=== PATIENT | female | born 1975 | race Caucasian/White ===

== ENCOUNTER 2025-04-09 17:50 | Emergency (ER) | payer OTHER, SELFPAY ==
--- OUTSIDE RECORDS SUMMARY | 2025-03-01 13:50 | XMS_ITS | Encounter Summary ---
Author Organization [place] Address [address] [facility] [place] [address] Care Team Providers Care Ug Designer Name Role Phone Alexandrea Blackwell MD Primary Care Provider Deidre Mcpherson APRN CORE JAVA ENGINEER Unavaila ble Rosina Murphy MD Unavailable [phone] Rosina Murphy MD Unavailable [phone] Nica Hua Unavailable Lis Sharp MD Unavailable Lis Sharp MD Unavailable Alisa Sheffield APRN CORE JAVA ENGINEER Unavailable [phone] Antolin Chavez MD Unavailable [phone] Reason for Visit * Reason Comments Procedure Here for injections, confirmed with patient Encounter Details Date Type Department Care Team (Late st Contact Info) Description 03/01/2025 1:50 PM CDT Office Visit [facility] [place] [address] [facility] 3rd [place] [address] Antolin Chavez MD [address] [facility] [address] [place] [address] Cervico-occipital neuralgia (Primary Dx); Muscle spasm Social History Tobacco Use Types Packs/Day Years Used Date Smoking Tobacco: Never Smokeless Tobacco: Never Alcohol Use Standard Drinks/Week Comments Yes 0 (1 standard drink = 0.6 oz pur e alcohol) 1/week PHQ-2 Answer Date Recorded PHQ-2 Score 0 08/03/2024 Adolescent Education Answer Date Record ed Getting School Help Needed Not on file 03/21 Interpersonal Safety Answer Date Record ed Do you feel physically and e motionally safe where you currently live? Yes 03/07/2024 Within the past 12 months, h ave you been hit, slapped, kicked or otherwise physically hurt by someone? No 03/07/2024 Within the past 12 months, h ave you been humiliated or emotionally abused in other ways by your partner or ex-partner? No 03/07/2024 Comments No Sex and Gender Information Value Date Recorded Sex Assigned at Female 03/04/2022 6:27 PM CDT Legal Sex Female 3:15 AM RN AMBULATORY Gender Identity Female 03/04/2022 6:27 PM CDT Sexual Orientation Bisexual 03/04/2022 6: 27 PM CDT documented as of this encounter Patient Instructions * Patient Instructions* Antolin Chavez MD - 03/01/2025 1:50 PM CDT It was a pleasure seeing you today in [facility]. We discussed the following: #. Flexeril (cyclobenzaprine) is generally marketed as a muscle relaxant, the similarities in chemical structure to the tricyclic antidepressants make it a very useful medication to treat pain and itcan also be helpful for treating sleep disturbance. Begin Flexeril at a dose of 5 mg 2-3 hours before bedtime. Taking the medication in this fashion can help decrease morning grogginess. Increase thedose by 5 mg every week as tolerated until a total dose of 10mg is achieved. #. INJECTION AFTERCARE Procedure performed: Occipital nerve blocks Medications used today: 1mL Kenalog (40mg/mL), 1% Lidocaine, Bupivacaine After any kind of injection, it is not uncommon to experience: - Soreness, swelling or bruising around the injection site. - Mild numbness, tingling or weakness around the injection site caused by the numbing medicine usedbefore or with the injection. It is also possible to experience the following effects associated with the specific agent after injection: - Allergic reaction. - Increased blood sugar levels for 10-14 days following cortisone injection. If you have diabetes and notice that your blood sugar levels have increased, notify your primary care physician. - Increased blood pressure levels. - Mood swings. - Increased fluid accumulation in the injected joint. These effects all should resolve within a day or two of your procedure. Please note that it may take up to 14 days for the steroid (cortisone) medication to start working. HOME CARE INSTRUCTIONS - Limit yourself to light activity activity on the day of your procedure. Avoid lifting heavy objects, bending, stooping or twisting. - You may shower, but please avoid swimming, hot tubs or tub baths for 24 hours following the procedure. - Take pkxv-nqu-rvziwdw pain medication (NSAIDS or Tylenol) for pain control after your procedure as needed. - You may use ice packs for 10-15 minutes 3-4 times per day at the injection site to reduce pain and swelling after your procedure. + Put ice in a plastic bag + Place a towel between your skin and the ice bag + Leave the ice on for no longer than 20 minutes each time to avoid injuring your skin or nerves + This can be repeated 3-4 times per day for a few days after the injection SEEK IMMEDIATE MEDICAL CARE IF: - Pain and swelling get worse rather than better or extend beyond the injection site - Numbness does not go away after a few hours - Blood or fluid continues to leak from the injection site - You experience chest pain - You have swelling of your face or tongue - You have trouble breathing or become dizzy - You develop fever, chills or severe tenderness at the injection site that lasts longer than 1 day MAKE SURE YOU: - Understand these instructions - Watch your condition - Get help right away if you are not doing well or if you get worse Follow-up: x3 months for repeat Botox injection. documented in this encounter Progress Notes * Antolin Chavez MD - 03/01/2025 1:50 PM CDT PM&R PROCEDURE NOTE: Bilateral Greater/Lesser Occipital Nerve Block PATIENT: Nicole Emanuel : 1975 Today's Date: 03/01/2025 ATTENDING PHYSICIAN: Antolin Chavez MD RESIDENT/FELLOW PHYSICIAN: None PREOP DIAGNOSIS: Cervico-occipital neuralgia (primary encounter diagnosis) POSTOP DIAGNOSIS: Same PROCEDURE PERFORMED: Bilateral Greater/Lesser Occipital Nerve Block INDICATIONS FOR PROCEDURE: Nicole Emanuel is a 49 year old female with a clinical picture consistent with chronic head/neck pain consistent with occipital neuralgia/cervico- occipital pain. PROCEDURE: Nicole was greeted in the clinic. The risk, benefits and alternatives to the procedure were again reviewed with the patient and written informed consent was placed in the chart. After having explained the potential risks (including but not limited to infection, bleeding, skin color change, post-injection soreness, injury to nerve) and benefits of the occipital nerve block injection, the patient gave consent to proceed. Prior to the procedure a time out was completed, verifying correct patient, procedure, site, positioning, and implants and/or special equipment. Needle(s) used: 25 gauge , 1 1/2 inch The area was prepped in aseptic fashion with Chlorhexidine scrub. The needle was directed into the region of the greater and lesser occipital nerves. The injection was completed with 5.0mL consistingof 0.5mL Kenalog (40mg/mL), 2mL 2% Lidocaine and 2.5mL 0.25% Bupivacaine which was delivered to theoccipital nerve regions (2.5mL per EVANGELIST and JOHN) using sterile technique after no blood was aspirated on pull back, per the right and left side(s). The remainder of the single use vials were discarded. The patient experienced numbness to the vertex of the head following the procedure as anticipated. Nicole was monitored for a brief period of time. She tolerated the procedure well and was discharged home in stable condition with post procedural instructions. Follow up: x3 months. Complications: None Comments: -Overall, notes increased pain and migraine symptoms following Botox injections last month with increased medication usage. -Flexeril (cyclobenzaprine) 5-10mg is generally marketed as a muscle relaxant, the similarities in chemical structure to the tricyclic antidepressants make it a very useful medication to treat pain and it can also be helpful for treating sleep disturbance. documented in this encounter Nursing Notes * Carol Mitchell - 03/01/2025 1:50 PM CDT Chief Complaint Patient presents with Procedure Here for injections, confirmed with patient Carol Escobar documented in this encounter Plan of Treatment Upcoming Encounters Date Type Department Care Team (Late st Contact Info) Description 04/17/2025 1:10 PM CDT Office Visit [facility] [address] [phone] Antolin Chavez MD [address] [place] [address] [id number] 05/29/2025 1:30 PM RN AMBULATORY Office Visit [facility] [address] [phone] Antolin Chavez MD [address] [place] [address] [id number] 07/10/2025 3:30 PM RN AMBULATORY Office Visit [facility] [address] [phone] Antolin Chavez MD [address] [place] [address] documented as of this encounter Procedures Procedure Name Priority Date/Time Associated Diagnosis Comments MO INJECTION ANES AGENT AND/OR STERIOD, OTHER PERIPH NERVE/BRANCH Routine 03/01/2025 2:27 PM CDT Cervico-occipital neuralgia Muscle spasm MO INJECTION ANES AGENT AND/OR STERIOD, GREATER OCCIPITAL NERVE Routine 03/01/2025 2:27 PM CDT Cervico-occipital neuralgia Muscle spasm documented in this encounter Visit Diagnoses Diagnosis Cervico-occipital neuralgia- Primary Other syndromes affecting cervical region Muscle spasm Spasm of muscle documented in this encounter Administered Medications Inactive Administered Medications - up to 3 most recent administrations Medication Order MAR Action Action Date Dose Rate Site bupivacaine (MARCAINE) 0.25% preservative free injection 12.5 mg (5 mL), Other, ONCE, On Thu03/01/25 at 1430, For 1 doseIndications:Cervico-occip ital neuralgia,Muscle spasm $Given by Other 03/01/2025 3:55 PM CDT 12.5 mg lidocaine (PF) (XYLOCAINE) 1 % injection 4 mL 4 mL, Intradermal, ONCE, On Thu03/01/25 at 1430, For 1 doseIndications:Cervico-occip ital neuralgia,Muscle spasm $Given by Other 03/01/2025 3:55 PM CDT 4 mLs triamcinolone (KENALOG-40) injection 40 mg 40 mg, Other, ONCE, On Thu03/01/25 at 1430, For 1 doseIndications:Cervico-occip ital neuralgia,Muscle spasm $Given by Other 03/01/2025 3:55 PM CDT 40 mg documented in this encounter Care Teams Ug Designer Relationship Specialty Start Date End Date Alexandrea Blackwell MD PCP - General 05/26/12 Deidre Mcpherson, AFSHIN CORE JAVA ENGINEER [address] [place] [address] [id number] [place], [place] [id number] Nurse Practitioner Neurology 07/27/20 Rosina Murphy MD [address] [place] [address] 074705 Physical Medicine and Rehabilitation 11/19/21 Rosina Murphy MD [address] [place] [address] [phone] Physical Medicine and Rehabilitation 11/19/21 Nica Hua AuD [address] [place], [place] 386[address] Beef Pluck Trimmer Audiology 05/21/22 Lis Sharp MD [address] [place] [address] 396 [place], [place] [phone] Otolaryngology 05/21/22 Lis Sharp MD [address] [place] [address] [phone] Assigned Surgical Provider 11/01/22 Alisa Sheffield APRN CNP [address] [place], [place] 151335 Nurse Practitioner Neurology 02/04/24 Antolin Chavez MD [address] [place] [address] [address] [place], [place] 615705 Assigned Neuroscience Provider 12/19/24 documented as of this encounter
--- OUTSIDE RECORDS SUMMARY | 2025-04-09 17:52 | XMS_ITS | Encounter Summary ---
Author Organization [place] Address [address], [place] [address] Care Team Providers Care Gas Main And Line Fitter Name Role Phone Alexandrea Blackwell MD Primary Care Provider [phone] Encounter Details Date Type Department Care Team (Late st Contact Info) Description 08/10/2013 Consent for Procedure/Treatme nt 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 Not on file Not on onofre e documented as of this encounter Progress Notes * [facility], PROVIDER - 08/10/2013 12:00 AM CST ITALITY MANAGER documented in this encounter Plan of Treatment Not on file documented as of this encounter Visit Diagnoses Not on filedocumented in this encounter Additional Health Concerns Infection Onset Date Last Indicated Resolved Time R/O COVID19 06/03/2021 06/03/2021 06/04/2021 2:15 PM HOSPITALITY MANAGER documented as of this encounter Care Teams Gas Main And Line Fitter Relationship Specialty [place] [address] [place] [address] PCP - General Family Practice 07/01/12 documented as of this encounter
--- OUTSIDE RECORDS SUMMARY | 2025-04-09 17:52 | XMS_ITS | Encounter Summary ---
Author Organization [place] Address [address] [facility] [place] [address] Care Team Providers Care Automobile Upholsterer Name Role Phone Alexandrea Blackwell MD Primary Care Provider [phone] Deidre Mcpherson APRN STRATEGY INTERN Unavaila ble Deidre Mcpherson COMMUNITY DIRECTOR STRATEGY INTERN Unavaila ble Rosina Murphy MD Unavailable [phone] Rosina Murphy MD Unavailable [phone] Nica Hua AuD Unavailable [phone] Lis Sharp MD Unavailable [phone] Lis Sharp MD Unavailable [phone] Alisa Sheffield APRN STRATEGY INTERN Unavailable [phone] Antolin Chavez MD Unavailable [phone] Encounter Details Date Type Department Care Team (Late st Contact Info) Description 03/03/2024 MyC Medical Advice [address] 5th [place] [address] Araceli Rosales RN Social History Tobacco Use Types Packs/Day Years Used Date Smoking Tobacco: Never Smokeless Tobacco: Never Alcohol Use Standard Drinks/Week Comments Yes 0 (1 standard drink = 0.6 oz pur e alcohol) 1/week PHQ-2 Answer Date Recorded PHQ-2 Score 0 02/17/2024 Adolescent Education Answer Date Record ed Getting [...] PM CDT Legal Sex Female 3:15 AM ADMITTING OFFICE ESCORT Gender Identity Female 03/04/2022 6:27 PM CDT Sexual Orientation Bisexual 03/04/2022 6: 27 PM CDT documented as of this encounter Plan of Treatment Upcoming Encounters Date Type Department Care Team (Late st Contact Info) Description 04/17/2025 1:10 PM CDT Office Visit [facility] Physical Medicine and Rehabilitation [address] [phone] Antolin Chavez MD [address] [place] [address] [phone] 05/29/2025 1:30 PM ADMITTING OFFICE ESCORT Office Visit [facility] Clinic [address] [phone] Antolin Chavez MD [address] [place] [address] [phone] 07/10/2025 3:30 PM ADMITTING OFFICE ESCORT Office Visit [facility] Rehabilitation Clinic [address] [phone] Antolin Chavez MD [address] [place] [address] [phone] documented as of this encounter Visit Diagnoses Not on filedocumented in this encounter Care Teams Automobile Upholsterer Relationship Specialty Start Date End Date Alexandrea Blackwell MD PCP - General 05/26/12 Deidre Mcpherson APRN STRATEGY INTERN [address] [place] [address] Nurse Practitioner Neurology 07/27/20 Deidre Mcpherson APRN STRATEGY INTERN [address] [place] [address] Assigned Neuroscience Provider 12/09/20 12/18/24 Rosina Murphy MD [address] [place] [address] Physical Medicine and Rehabilitation 11/19/21 Rosina Murphy MD [address] [place] [address] [phone] Physical Medicine and Rehabilitation 11/19/21 Nica Hua AuD [address] [place] [address] School Examiner Audiology 05/21/22 Lis Sharp MD [address] [facility] [address] [place] [address] Otolaryngology 05/21/22 Lis Sharp MD [address] [facility] [address] [place] [address] Assigned Surgical Provider 11/01/22 Alisa Sheffield APRN CNP [address] [place] [address] 638165 Nurse Practitioner Neurology 02/04/24 Antolin Chavez MD [address] [place] [address] 297 [place], [place] 8[address]35 Assigned Neuroscience Provider 12/19/24 documented as of this encounter
--- OUTSIDE RECORDS SUMMARY | 2025-04-09 17:52 | XMS_ITS | Encounter Summary ---
Author Organization [place] Address [address] [facility] [place] [address] Care Team Providers Care Hot Worker Name Role Phone Alexandrea Blackwell MD Primary Care Provider Rupa Roa MD Unavailable [phone] Lis Sharp MD Unavailable Deidre Mcpherson APRN SMOKE EATER Unavaila ble Tico Mensah MD Unavailable Deidre Mcpherson APRN SMOKE EATER Unavaila ble Mars Canela MD Unavailable [phone] Rosina Murphy MD Unavailable [phone] Rosina Murphy MD Unavailable [phone] Nica Hua Unavailable [phone] Lis Sharp MD Unavailable [phone] Lis Sharp MD Unavailable [phone] Mars Canela MD Unavailable [phone] Lis Sharp MD Unavailable [phone] Alisa Sheffield APRN SMOKE EATER Unavailable [phone] Antolin Chavez MD Unavailable [phone] Encounter Details Date Type Department Care Team (Late st Contact Info) Description 05/14/2020 MyC Medical Advice [facility] Neurology Clinic [address] [phone] Lilliam Navarro, JUAN Social History Tobacco Use Types Packs/Day Years Used Date Smoking Tobacco: Never Smokeless Tobacco: Never Alcohol Use Standard Drinks/Week Comments Yes 0 (1 standard drink = 0.6 oz pur e alcohol) 1/week PHQ-2 Answer Date Recorded PHQ-2 Score 0 04/10/2020 Comments No Sex and Gender Information Value Date Recorded Sex Assigned at Female 03/04/2022 6:27 PM CDT Legal Sex Female 3:15 AM WATCHER AUTOM[employer] Gender Identity Female 03/04/2022 6:27 PM CDT Sexual Orientation Bisexual 03/04/2022 6: 27 PM CDT COVID-19 Exposure Response Date Recorded In the last month, have you been in contact with someone who was confirmed or suspected to have Coronavirus / COVID-19? No / Unsure 05/04/2020 6:50 AM WATCHER [employer]OM[employer] documented as of this encounter Plan of Treatment Upcoming Encounters Date Type Department Care Team (Late st Contact Info) Description 04/17/2025 1:10 PM CDT Office Visit [facility] Physical Medicine and Rehabilitation [address] [phone] Antolin Chavez MD [address] [place] [address] 05/29/2025 1:30 PM WATCHER [employer] Office Visit [facility] Physical Medicine and Rehabilitation Clinic [address] [phone] Antolin Chavez MD [address] [place] [address] 07/10/2025 3:30 PM WATCHER [employer] Office Visit [facility] Physical Medicine and Rehabilitation Clinic [address] 3rd [place] [phone] Antolin Chavez MD [address] [facility] [address] [place] [address] documented as of this encounter Visit Diagnoses Not on filedocumented in this encounter Care Teams Hot Worker Relationship Specialty Start Date End Date Alexandrea Blackwell MD PCP - General 05/26/12 Rupa Roa MD [address] [place] [address] Assigned Neuroscience Provider 05/13/20 11/10/20 Lis Sharp MD [address] [place] [address] 396 [place], [place] [phone] Assigned Surgical Provider 04/20/20 10/12/21 Deidre Mcpherson APRN SMOKE EATER [address] [place] [address] [phone] Nurse Practitioner Neurology 07/27/20 Tico Mensah MD [address] [place] [address] [phone] Assigned Neuroscience Provider 11/11/20 12/08/20 Deidre Mcpherson APRN SMOKE EATER [address] [place] [address] 827075 Assigned Neuroscience Provider 12/09/20 12/18/24 Mars aCnela MD [address] [place] [address] Assigned Surgical Provider 10/13/21 09/05/22 Rosina Murphy MD [address] [place] [address] Physical Medicine and Rehabilitation 11/19/21 Rosina Murphy MD [address] [place] [address] Physical Medicine and Rehabilitation 11/19/21 Nica Hua AuD [address] [place] [address] Exploration Geologist Audiology 05/21/22 Lis Sharp MD [address] [place] [address] Otolaryngology 05/21/22 Lis Sharp MD [address] [place] [address] Assigned Surgical Provider 09/06/22 10/24/22 Mars Canela MD [address] [place] [address] Assigned Surgical Provider 10/25/22 10/31/22 Lis Sharp MD [address] [place] [address] Assigned Surgical Provider 11/01/22 Alisa Sheffield APRN CNP [address] [place] [address] Nurse Practitioner Neurology 02/04/24 Antolin Chavez MD [address] [facility] [address] [place], [place] [address] Assigned Neuroscience Provider 12/19/24 documented as of this encounter
--- OUTSIDE RECORDS SUMMARY | 2025-04-09 17:52 | XMS_ITS | CCD ---
Author Name Interface, [id number] lity Address [facility] [address] [address] [facility] Address [address] [address] Reason for Visit Social History
--- OUTSIDE RECORDS SUMMARY | 2025-04-09 17:52 | XMS_ITS | Encounter Summary ---
Author Organization [employer] Address [address] [place] [address] Care Team Providers Care Bushing And Broach Operator Name Role Phone Alexandrea Blackwell MD Primary Care Provider [phone] Reason for Visit * Reason Comments Prior Authorization For Medication lidoc maría (LIDODERM) 5 % patch Encounter Details Date Type Department Care Team (Late st Contact Info) Description 04/04/2025 Telephone [facility] [address] [place] [address] [place] [address] [place] [address] Prior Authorization For Medication (lidocaine (LIDODERM) 5 % patch) Social History Tobacco Use Types Packs/Day Years Used Date Smoking Tobacco: Never Smokeless Tobacco: Never Alcohol Use Standard Drinks/Week Comments Yes 3 (1 standard drink = 0.6 oz pure alcohol) drinks per week 2 per new pt manjinder hx form 07/12/18 PHQ-2 Answer Date Recorded PHQ-2 Score 0 01/27/2025 Financial Resource Strain Answer Date R ecorded Is it hard for you to pay fo r the very basics like food, housing, medical care or heating? No 12/22/2022 Food Insecurity Answer Date Recorded Does your food run out before you have the money to buy more? No 12/22/2022 Transportation Needs Answer Date Record ed Does a lack of transportatio n keep you from your medical appointments or from getting your medications? 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 Prior authorization has been initiated for lidocaine (LIDODERM) 5 % patch . Your Prior Authorization has been started. Please allow at least 8 weeks to complete processing. Weappreciate your patience, and you will be notified once an update is available. documented in this encounter Plan of Treatment Not on file documented as of this encounter Visit Diagnoses Not on filedocumented in this encounter Care Teams Bushing And Broach Operator Relationship Specialty Start [place] [address] [place] [address] PCP - General Family Practice 07/01/12 documented as of this encounter
--- OUTSIDE RECORDS SUMMARY | 2025-04-09 17:52 | XMS_ITS | Encounter Summary ---
Author Organization [place] Address [facility] [place] [address] Care Team Providers Care Teacher Of The Deaf Name Role Phone Alexandrea Blackwell MD Primary Care Provider [phone] Deidre Mcpherson APRN BUSINESS ADVISOR Unavaila ble Deidre Mcpherson APRN BUSINESS ADVISOR Unavaila ble Mars Canela MD Unavailable [phone] Rosina Murphy MD Unavailable [phone] Rosina Murphy MD Unavailable [phone] Nica Hua Unavailable [phone] Lis Sharp MD Unavailable + [phone] Lis Sharp MD Unavailable [phone] Mars Canela MD Unavailable [phone] Lis Sharp MD Unavailable [phone] Alisa Sheffield APRN BUSINESS ADVISOR Unavailable [phone] Antolin Chavez MD Unavailable [phone] Encounter Details Date Type Department Care Team (Late st Contact Info) Description 12/17/2021 [facility] [address] [phone] Eugenia Milton, RN Social History Tobacco Use Types Packs/Day Years Used Date Smoking Tobacco: Never Smokeless Tobacco: Never Alcohol Use Standard Drinks/Week Comments Yes 0 (1 standard drink = 0.6 oz pur e alcohol) 1/week PHQ-2 Answer Date Recorded PHQ-2 Score 0 08/07/2021 Comments No Sex and Gender Information Value Date Recorded Sex Assigned at Female 03/04/2022 6:27 PM CDT 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 No / Unsure 12/12/2021 3:51 PM CDT documented as of this encounter Plan of Treatment Upcoming Encounters Date Type Department Care Team (Late st Contact Info) Description 04/17/2025 1:10 PM CDT Office Visit [facility] [address] [phone] Antolin Chavez MD [address] [place] [address] 05/29/2025 1:30 PM WORK OVER RIG OPERATOR Office Visit [facility] [address] [phone] Antolin Chavez MD [address] [place] [address] [phone] 07/10/2025 3:30 PM WORK OVER RIG OPERATOR Office Visit [facility] [address] [phone] Antolin Chavez MD [address] [place] [address] [address] [place] [address] documented as of this encounter Visit Diagnoses Not on filedocumented in this encounter Care Teams Teacher Of The Deaf Relationship Specialty Start Date End Date Alexandrea Blackwell MD PCP - General 05/26/12 Deidre Mcpherson APRN BUSINESS ADVISOR [address] [place] [address] [phone] Nurse Practitioner Neurology 07/27/20 Deidre Mcpherson APRN BUSINESS ADVISOR [address] [place] [address] [phone] Assigned Neuroscience Provider 12/09/20 12/18/24 Mars Canela MD [address] [place] [address] 18367 Assigned Surgical Provider 10/13/21 09/05/22 Rosina Murphy MD [address] [place] [address]38 Physical Medicine and Rehabilitation 11/19/21 Rosina Murphy MD [address] [place] [address] 41989 Physical Medicine and Rehabilitation 11/19/21 Nica Hua AuD [address] [place] [address] 55390 Physician Relations Representative Audiology 05/21/22 Lis Sharp MD [address] [facility] 396 [place] [address] Otolaryngology 05/21/22 Lis Sharp MD 420 [facility] 396 [place], [place] 620575 Assigned Surgical Provider 09/06/22 10/24/22 Mars Canela MD [address] [place], [place] 748625 Assigned Surgical Provider 10/25/22 10/31/22 Lis Sharp MD [address] [phone] Assigned Surgical Provider 11/01/22 Alisa Sheffield APRN BUSINESS ADVISOR [address] [place], [place] [phone] Nurse Practitioner Neurology 02/04/24 Antolin Chavez MD 420 [facility] [address] [place], [place] [address] Assigned Neuroscience Provider 12/19/24 documented as of this encounter
--- OUTSIDE RECORDS SUMMARY | 2025-04-09 17:52 | XMS_ITS | Encounter Summary ---
Author Organization [place] Address [address] [facility] [place] [address] Care Team Providers Care Custodian Athletic Equipment Name Role Phone Alexandrea Blackwell MD Primary Care Provider Rupa Roa MD Unavailable [phone] Lis Sharp MD Unavailable [phone] Deidre Mcpherson APRN BUSINESS REPORTING DEVELOPER Unavaila ble Saleem Mahoney MD Unavailable [phone] Tico Mensah MD Unavailable Deidre Mcpherson APRN BUSINESS REPORTING DEVELOPER Unavaila ble Mars Canela MD Unavailable [phone] Rosina Murphy MD Unavailable [phone] Rosina Murphy MD Unavailable [phone] Nica Hua Unavailable [phone] Lis Sharp MD Unavailable [phone] Lis Sharp MD Unavailable [phone] Mars Canela MD Unavailable [phone] Lsi Sharp MD Unavailable [phone] NettieAlisa kline AFSHIN BUSINESS REPORTING DEVELOPER Unavailable [phone] Antolin Chavez MD Unavailable [phone] Encounter Details Date Type Department Care Team (Late st Contact Info) Description 04/27/2020 [facility] Medical Advice [facility] [address] [phone] Noemi Harley RN Social History Tobacco Use Types Packs/Day Years Used Date Smoking Tobacco: Never Smokeless Tobacco: Never Alcohol Use Standard Drinks/Week Comments Yes 0 (1 standard drink = 0.6 oz pur e alcohol) 1/week PHQ-2 Answer Date Recorded PHQ-2 Score 0 04/10/2020 Comments No Sex and Gender Information Value Date Recorded Sex Assigned at Female 03/04/2022 6:27 PM CDT 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 No / Unsure 04/26/2020 1:47 PM CDT documented as of this encounter Plan of Treatment Upcoming Encounters Date Type Department Care Team (Late st Contact Info) Description 04/17/2025 1:10 PM CDT Office Visit [facility] [address] [phone] Antolin Chavez MD [address] [place] [address] [phone] 05/29/2025 1:30 PM MERCHANDISE FOR RESALE PURCHASING AGENT Office Visit [facility] [address] [phone] Antolin Chavez MD [address] [place] [address] 338105 07/10/2025 3:30 PM MERCHANDISE FOR RESALE PURCHASING AGENT Office Visit [facility] [place] [address] [facility] 3rd [place] [phone] Antolin Chavez MD 420 [facility] 297 [place], [place] 040395 documented as of this encounter Visit Diagnoses Not on filedocumented in this encounter Care Teams Custodian Athletic Equipment Relationship Specialty Start Date End Date Alexandrea Blackwell MD PCP - General 05/26/12 Rupa Roa MD [address] [place] [address]121 [place], [place] [phone] Assigned Neuroscience Provider 05/13/20 11/10/20 Lis Sharp MD [address] [place] [address] 396 [place], [place] 724915 Assigned Surgical Provider 04/20/20 10/12/21 Deidre Mcpherson APRN BUSINESS REPORTING DEVELOPER [address] [place], [place] [id number] [place], [place] [phone] Nurse Practitioner Neurology 07/27/20 Saleem Mahoney MD [address] [place] [address] [phone] Assigned Neuroscience Provider 04/20/20 05/12/20 Tico Mensah MD [address] [place] [address] [phone] Assigned Neuroscience Provider 11/11/20 12/08/20 Deidre Mcpherson APRN BUSINESS REPORTING DEVELOPER [address] [place] [address] [id number] [place], [place] [phone] Assigned Neuroscience Provider 12/09/20 12/18/24 Mars Canela MD [address] [place] [address] [phone] Assigned Surgical Provider 10/13/21 09/05/22 Rosina Murphy MD [address] [place] [address] [phone] Physical Medicine and Rehabilitation 11/19/21 Rosina Murphy MD [address] [place] [address] [phone] Physical Medicine and Rehabilitation 11/19/21 Nica Hua AuD [address] [place] [address] [phone] Breast Buffer Audiology 05/21/22 Lis Sharp MD [address] [place] [address]8543 Otolaryngology 05/21/22 Lis Sharp MD [address] [place] [address] 26645 Assigned Surgical Provider 09/06/22 10/24/22 Mars Canela MD [address] [place] [address] [phone] Assigned Surgical Provider 10/25/22 10/31/22 Lis Sharp MD 420 [facility] 396 [place] [address] Assigned Surgical Provider 11/01/22 Alisa Sheffield APRN CNP [address] [place] [address] Nurse Practitioner Neurology 02/04/24 Antolin Chavez MD 420 [facility] 297 [place], [place] [phone] Assigned Neuroscience Provider 12/19/24 documented as of this encounter
--- OUTSIDE RECORDS SUMMARY | 2025-04-09 17:52 | XMS_ITS | Clinical Summary ---
Author Organization [employer] Address [address] [place] [address] Care Team Providers Care Jacker Name Role Phone Alexandrea Blackwell MD Primary Care Provider [phone] Source Comments You are receiving this document as you are listed as the primary care provider,follow-up provider, or the patient has been referred to you for consultation.This is in compliance with the Medicare and[facility] EHR Incentive Program,which states Providers who transition their patient to another setting of careor provider of care or refers their patient to another provider of care shouldprovide summary care record for each transition of care or referral. [employer] Allergies Active Allergy Reactions Criticality Noted Date Comments Shellfish-Derived Products Hives High 8 Sulfa Antibiotics Hives,Rash 07/06/2006 Medications cetirizine (AKA ZYRTEC) 10 MG tablet Take 1 Tablet (10 mg) by mouth daily. 90 3 7 Active topiramate (TOPAMAX) 25 MG tablet Take 2 Tablets (50 mg) by mouth daily. Active fluticasone propionate (FLONASE) 50 MCG/ACT nasal solutionIndications :Sinusitis,RSOM (right serous otitis media) Place 2 Sprays into both nostrils daily at bedtime. 1 Each 2 1 Active Rimegepant Sulfate 75 MG TBDP Take 1 Tablet (75 mg) by mouth. 3 Active ondansetron (ZOFRAN-ODT) 4 MG disintegrating tablet Take 1 Tablet (4 mg) by mouth. 3 Active onabotulinumtoxinA (BOTOX) 200 units injection Inject 155 Units intramuscula rly. 3 Active naratriptan (AMERGE) 2.5 MG tablet Take by mouth. Active methocarbamol (ROBAXIN) 750 MG tablet Take 1 Tablet (750 mg) by mouth three times a day. Active lidocaine (LIDODERM) 5 % patch Apply 1 Patch to skin daily. Leave on for up to 12 hours in a 24 hour period, then remove. 14 Patch 2 4 Active traZODone (DESYREL) 100 MG tabletIndications:S leep disturbance TAKE 1 TABLET BY MOUTH EVERY NIGHT AT BEDTIME NEEDED FOR INSOMNIA 90 Tablet 3 5 Active PARoxetine (PAXIL) 10 MG tabletIndications:O ther depression Take 3 Tablets (30 mg) by mouth daily. 270 Tablet 2 5 Active Estradiol 0.5 MG/0.5GM GEL Apply 0.5 Each to skin daily. 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 Sleep disturbance 05/01/2015 Neuroma, digital 12/20/2012 Depression 01/08/2012 Overview (01/08/2012): situational after miscarriage Back pain 01/02/2012 Vasomotor rhinitis 02/25/2010 Epistaxis 02/25/2010 Migraine with aura 02/08/2010 Overview (02/20/2017): Patient will get tunnel vision with her migraines at times. 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 Encounters Date Type Department Care Team Description 04/04/[address] 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 (Primary Dx); Vasomotor symptoms due to menopause 01/28/2025 Results Follow-Up [address] [phone] Alexandrea Blackwell MD 01/27/2025 3:30 PM CDT Lab Visit Laboratory at [address] [phone] Screening for deficiency anemia (Primary Dx) 01/27/2025 3:00 PM CDT Office Visit [address] [phone] Alexandrea Blackwell MD Menopausal syndrome (hot flashes) (Primary Dx); Screening for deficiency anemia; Changing skin lesion 01/08/2025 Refill [facility] [address] [place] [address] Haim Marion MD Refill (Estradiol 0.25 MG/0.25GM GEL [Pharmacy Med Name: ESTRADIOL 0.25MG/DAY TOP GEL PK]) from Last 3 Months Immunizations Immunization Administration Dates Next Due Flu Vac (3+ yrs) 05/18/2017 HepA Adult (19+ yrs) 12/29/2011 HepB Adult (Engerix-B, 20+ y rs, 3 dose series) 12/29/2011,11/25/2011 Influenza (Flucelvax), Prese rv Free QIV 04/15/2023,03/29/2018 Influenza IIV4 (Quadrivalent ) 0.5mL (14477) 04/02/2021,04/05/2019,05/18/2017,2013 Influenza, Unspecified Formulation 03/29/2015, Pfizer Monovalent 12+ Purple Top 09/05/2020,07/30 Td 11/13/2004 Tdap 04/30/2015,11/13/2004 Typhoid (Typhim Vi, IM) 01/08/2012 Varicella 01/08/2012(Deferred: Immune by See mock) Family History Medical History Relation Name Comments Coronary Artery Disease Father Abdias CABG x 5 01/2010 Heart Disease Father Abdias Hypertension Father Abdias Asthma Mother Marce Cataract Mother Marce Diabetes Mother Marce Diabetes, Type II Mother Amrce Migraines Mother Marce Cancer Brother 2 Severo Neurological En docrine Kidney/Bladder Disease Brother 2 Severo Cancer, Colon Maternal Grandfather Cancer, Prostate Maternal Grandfather Cancer Maternal Grandmother Steph Breast Cancer, Breast Maternal Grandmother Steph Diabetes Maternal Grandmother Steph Diabetes, Type II Maternal Grandmother Steph Depression Maternal Uncle 1 Harshad Diabetes Maternal Uncle 2 Simon Cancer, Ovary Negative Family History Glaucoma Negative Family History Macular Degeneration Negative Family History Relation Name Status Comments Father Abdias Alive Mother Marce Alive Brother 1 Alive Brother 2 Severo Maternal Grandfather (Age 92) [place] Cancer Maternal Grandmother Steph (Age 72) Al zheimer's Maternal Uncle 1 Harshad Maternal Uncle 2 Simon Paternal Grandfather Paternal Grandmother Social History Tobacco Use Types Packs/Day Years Used Date Smoking Tobacco: Never Smokeless Tobacco: Never Tobacco Cessation:Counseling Given: Not Answered Alcohol Use Standard Drinks/Week Comments Yes 3 [...] Not on file Not on onofre e Last Filed Vital Signs Vital Sign Reading Time Taken Comments Blood Pressure 106/77 02/13/2025 8:10 AM CDT Pulse 70 02/13/2025 8:10 AM CDT Temperature 36.4 C (97.5 F) 03/26/2023 4:05 PM CDT Respiratory Rate 17 08/21/2017 1:10 PM PRODUCT OPERATIONS ASSOCIATE Oxygen Saturation 98% 06/03/2021 3:38 PM PRODUCT OPERATIONS ASSOCIATE Inhaled Oxygen Concentration - - Weight 64.3 kg (141 lb 12.8 oz) 02/13/2025 8:10 AM CDT Height 167.6 cm (5' 6) 12/10/2023 3:24 PM CDT Body Mass Index 22.89 12/10/2023 3:24 PM CDT Plan of Treatment Health Maintenance Due Date Last Done Comments HepA Vaccine (2 of 2 - Risk 2-dose series) 06/30/2012 12/29/2011 Pneumococcal Vaccine 50+ Yrs (1 of 1 - PCV) 2023 Zoster/Shingles Vaccine (1 of 2) 2023 Adult Preventive Visit 12/24/2023 3, 08/08/2015, 06/05/2014, Additional history exists COVID-19 Vaccine (3 - season) 2025 09/05/2020, 08/15/2020 Influenza Vaccine (#1) 2025 3, 04/02/2021, 04/05/2019, Additional history exists DTaP/Tdap/Td Vaccine (4 - Tdap) 04/30/2025 04/30/2015, 11/13/2004, 11/13/2004 Mammogram 06/23/2025 06/23/2024, 10/27, 09/10/2021, Additional history exists Cholesterol 12/24/2027 12/23/2022, 07/30, 04/25/2014 Colonoscopy 03/15/2029 03/15/2019, 07/31, 08/21/2017 (Completed), Additional history exists RSV Vaccine (1 - 1-dose 75+ series) 2048 Cervical Cancer Screening Discontinued 2015, 06/05/2014, 05/16/2013, Additional history exists HIV Screening (Preventive Services) Completed 12/11/2016, 08/08/2015 Hep C Screening (Preventive Services) Completed 12/23/2022 Hib Vaccine Aged Out No longer eligi ble based on patient's age to complete this topic IPV (Polio) Vaccine Aged Out No longe r eligible based on patient's age to complete this topic MCV4 Vaccine Aged Out No longer eligi ble based on patient's age to complete this topic Meningococcal B Vaccine Aged Out No l onger eligible based on patient's age to complete this topic Procedures Procedure Name Priority Date/Time Associated Diagnosis Comments SKIN BIOPSY Routine 02/13/2025 10:49 AM CDT Neoplasm of skin (HRC) SURGICAL PATHOLOGY, DERMATOLOGY Routine 02/13/2025 10:49 AM CDT Neoplasm of skin (HRC) COMPLETE BLOOD COUNT-W/DIFF Routine 01/27/2025 3:34 PM CDT Screening for deficiency anemia CBC AND DIFFERENTIAL PANEL Routine 01/27/2025 3:34 PM CDT Screening for deficiency anemia COMPLETE BLOOD COUNT-NO DIFF Routine 01/27/2025 3:34 PM CDT Screening for deficiency anemia MM MAMMOGRAM SCREENING BILAT W 3D JG W CAD Routine 06/23/2024 2:03 PM PRODUCT OPERATIONS ASSOCIATE HEPATITIS C ANTIBODY, WITH REFLEX (ANTI-HCV) Routine 12/23/2022 8:59 AM CDT Routine health maintenance LIPID PANEL & DIRECT LDL (IF NEEDED) Routine 12/23/2022 8:59 AM CDT Routine health maintenance COLONOSCOPY S 03/15/2019 12:00 AM CDT HIV 1/2 AG/AB 4TH GEN Routine 12/11/2016 5:09 PM CDT Lymphadenopathy PAP TEST, ROUTINE Routine 08/08/2015 12: 39 PM PRODUCT OPERATIONS ASSOCIATE Encounter for preventative adult health care examination from Last 3 Months or Most Recently Relevant to Health Maintenance Results * Skin Biopsy (02/13/2025 10:49 AM CDT) Narrative EXTERNAL RESULTS - 02/13/2025 10:49 AM CDT Type of biopsy: tangential Informed consent: discussed and consent obtained Timeout: patient name, date of , surgical site, and procedure verified Anesthesia: the lesion was anesthetized in a standard fashion Anesthetic: 1% lidocaine w/ epinephrine 1-100,000 local infiltration Instrument used: flexible razor blade Hemostasis achieved with: aluminum chloride Outcome: patient tolerated procedure well Post-procedure details: wound care instructions given Additional details: Site cleansed with rubbing alcohol prior to anesthetic. Post procedure, plain vaseline and bandage applied. us Rama Glasgow MD DERM PROCEDURE ORDERABLES Fin al Result EXTERNAL RESULTS * Surgical Path, Dermatology (02/13/2025 10:49 AM CDT) Case Report Surgical Pathology Report Case: [id number] Authorizing Provider: Rama Glasgow MD Collected: 02/13/2025 1049 Ordering Location: [facility] Received: 02/14/2025 0806 Pathologist: Caio Moore MD Specimen: Skin, Left Ala Nasi 02/15/2025 3:27 PM CDT [facility] [facility] FINAL DIAGNOSIS A. Skin, Left Ala Nasi, shave: - Benign intradermal melanocytic nevus, present at deep biopsy margin. 02/15/2025 3:27 PM CDT [place] [facility] [address] [facility] at 1527 CDT Clinical Information Clinical Impression: -2 mm skin-colored papule -Rule out benign nevus vs. BCC vs. Fibrous papule 02/15/2025 3:27 PM CDT [place] [facility] [address] [facility] Microscopic Description Microscopic examination is performed. 02/15/2025 3:27 PM CDT [facility] [address] [facility] Technical Information A portion of the technical staining was performed at [address] [address]. 02/15/2025 3:27 PM CDT [facility] [address] [facility] Gross Description A: Received in formalin, labeled with the patient's name and Skin, Left Ala Nasi is a 7 x 4 x 1 mm shave of skin. The specimen is marked with purple ink, bisected, and submitted entirely in one cassette. TV 02/15/2025 3:27 PM CDT [place] [facility] [address] [facility] Embedded Images 02/15/2025 3:27 PM CDT [place] [facility] [address] [facility] Skin (Skin) 02/13/2025 10:4 9 AM CDT 02/14/2025 8:06 AM CDT Comment:Clinical Impression: -2 mm skin-colored papule -Rule out benign nevus vs. BCC vs. Fibrous papule Rama Glasgow MD LAB PATHOLOGY Final Result [place] [facility] [address] [facility] CLIA: [id number] [address] [place] [address]. [place], [place] [address] * Complete Blood Count-W/Diff (01/27/2025 3:34 PM CDT) WBC 8.4 3.5 - 10.5 x10(9)/L 01/28/2025 8:46 AM CDT [facility] RBC 4.82 3.90 - 5.03 x10(12)/L 01/28/2025 8:46 AM CDT [facility] Hemoglobin 14.4 12.0 - 15.5 g/dL 01/28/2025 8:46 AM CDT [facility] HCT 44.5 34.9 - 44.5 % 01/28/2025 8:46 AM CDT [facility] MCV 92.3 80.0 - 100.0 fL 01/28/2025 8:46 AM CDT [facility] MCH 29.9 27.6 - 33.3 pg 01/28/2025 8:46 AM CDT [facility] MCHC 32.4 31.5 - 35.2 g/dL 01/28/2025 8:46 AM CDT [facility] RDW 12.2 11.9 - 15.5 % 01/28/2025 8:46 AM CDT [facility] Platelets 255 150 - 450 x10(9)/L 01/28/2025 8:46 AM CDT [facility] Neutrophil Absolute 5.2 1.7 - 7.0 10(9)/L 01/28/2025 8:46 AM CDT [facility] Lymphocyte Absolute 2.5 1.0 - 4.8 10(9)/L 01/28/2025 8:46 AM CDT [facility] Monocyte Absolute 0.6 0.2 - 0.9 10(9)/L 01/28/2025 8:46 AM CDT [facility] Eosinophil Absolute 0.1 0.0 - 0.5 10(9)/L 01/28/2025 8:46 AM CDT [facility] Basophil Absolute 0.1 0.0 - 0.3 10(9)/L 01/28/2025 8:46 AM CDT [facility] Immature Granulocyte % 0.2 0.0 - 0.5 % 01/28/2025 8:46 AM T [facility] Blood Venipuncture / Unknown 01/27/2025 3:34 PM CDT 01/28/2025 8:36 AM CDT us Alexandrea Blackwell MD LAB_1 Final Result [facility] [address] [place] [address], [facility] * (ABNORMAL) Complete Blood Count-No Diff (01/27/2025 3:34 PM CDT) WBC 8.1 3.5 - 10.5 x10(9)/L 01/27/2025 4:00 PM CDT [facility] RBC 4.84 3.90 - 5.03 x10(12)/L 01/27/2025 4:00 PM CDT [facility] Hemoglobin 14.3 12.0 - 15.5 g/dL 01/27/2025 4:00 PM CDT [facility] HCT 44.7(H) 34.9 - 44.5 % 01/27/2025 4:00 PM CDT [facility] MCV 92.4 80.0 - 100.0 fL 01/27/2025 4:00 PM CDT [facility] MCH 29.5 27.6 - 33.3 pg 01/27/2025 4:00 PM CDT [facility] MCHC 32.0 31.5 - 35.2 g/dL 01/27/2025 4:00 PM CDT [facility] RDW 12.2 11.9 - 15.5 % 01/27/2025 4:00 PM CDT [facility] Platelets 236 150 - 450 x10(9)/L 01/27/2025 4:00 PM CDT [facility] Blood Venipuncture / Unknown 01/27/2025 3:34 PM CDT 01/27/2025 3:34 PM CDT us Alexandrea Blackwell MD LAB_1 Final Result Performing Organization Address City/State/[facility] Co de Phone Number [facility] [address] [place] [phone] * MM Mammogram Screening Bilat W 3D Jg W CAD (06/23/2024 2:03 PM PRODUCT OPERATIONS ASSOCIATE) Anatomical Region Laterality Modality Breast Bilateral Mammography Impressions 06/23/2024 6:47 PM PRODUCT OPERATIONS ASSOCIATE : ACR BI-RADS Category 1: Negative RECOMMENDATION: Follow Up Imaging in 12 months - Bilateral The results and recommendations of this examination will be communicated to the patient. Narrative 06/23/2024 6:47 PM PRODUCT OPERATIONS ASSOCIATE MM MAMMOGRAM SCREENING BILAT W 3D JG W CAD performed on 06/23/24 FDA Accredited Facility: [place] [id number] Compared to: 11/12/2022 MM Mammogram Screening Bilat W 3D Jg W CAD, 09/10/2021 MM Mammogram Screening Bilat W 3D Jg W CAD, and 07/25/2020 MM Mammogram Screening Bilat W 3D Jg W CAD FINDINGS: Bilateral screening mammogram was performed with the assistance of Computer-Aided Detection and breast tomosynthesis. The breasts are heterogeneously dense, which may obscure small masses. There is no radiographic evidence of malignancy. us Alexandrea Blackwell MD RAD [facility] Final Result * (ABNORMAL) Lipid Panel and Direct LDL(If Needed) (12/23/2022 8:59 AM CDT) Cholesterol 170 0 - 199 mg/dL 12/23/2022 1:11 PM CDT [facility] Triglyceride 124 <=149 mg/dL 12/23/2022 1:11 PM CDT [facility] HDL Cholesterol 39(L) >=40 mg/dL 12/23/2022 1:11 PM CDT [facility] LDL, Calculated 106 <130 mg/dL 12/23/2022 1:11 PM CDT [facility] Non HDL Chol, Calculated 131 <=159 mg/dL 12/23/2022 1:11 PM CDT [facility] Cholesterol/HDL Ratio 4.4 12/23/2022 1:11 PM CDT [facility] Hours Fasting 12 12/23/2022 1:11 PM T [facility] Blood Venipuncture / Unknown 12/23/2022 8:59 AM CDT 12/23/2022 8:59 AM CDT Russel Fernandez MD LAB_1 Final Result [facility] [address] [place] [address], [facility] [phone] [facility] [address] [place] [address] [phone] * Hepatitis C Antibody, with Reflex (12/23/2022 8:59 AM CDT) Pathologist [facility] Hepatitis C Antibody Negative (Non Reactive) Negative (Non Reactive) 12/23/2022 1:24 PM CDT [facility] Comment:Antibodies to HCV no t detected. Does not exclude the possiblity of exposure to HCV. Blood Venipuncture / Unknown 12/23/2022 8:59 AM CDT 12/23/2022 8:59 AM CDT Russel Fernandez MD LAB_1 Final Result Performing Organization Address [facility]/[place] [address], [facility] [phone] * COLONOSCOPY S (03/15/2019 12:00 AM CDT) 03/15/2019 Alexandrea Blackwell MD DUMMY/OTHER/AR Final Result * HIV 1/2 Ag/Ab 4th Generation (12/11/2016 5:09 PM CDT) Pathologist [facility] HIV 1/2 AG/AB 4thGEN Negative (Non Reactive) NEGNR [facility] Comment:HIV-1 p24 Ag and HIV -1/HIV-2 Ab not detected. 12/11/2016 5:09 PM CDT 12/11/2016 5:11 PM CDT Narrative [facility] - 12/12/2016 12:15 PM CDT Performed at [facility], [address] [place] [address] Caesar Fonseca MD LAB_1 Final Resu lt [facility] [phone] * PAP TEST, ROUTINE (08/08/2015 12:39 PM PRODUCT OPERATIONS ASSOCIATE) Pathologist [facility] Cytology, Pap (NOTE) Timber Supervisor Cytology Report Patient Name: NICOLE ELENA Taken: 08/08/2015 Received: 08/08/2015 Reported: 08/14/2015 Physician(s): JANEL LINDSEY Source of Specimen Pap Test, Routine Cervical/Endocervi ashish: Specimen Adequacy Satisfactory for evaluation. Endocervical component present. Final Cytologic Interpretation/Res ult NEGATIVE FOR INTRAEPITHELIAL LESION OR MALIGNANCY (NILM) *Electronically Signed Out By JULIAN Cervantes (ASCP)* JULIAN Cervantes (ASCP) Pap Smear History Date of Last Menstrual Period: 07/16/2015 Microscopic Description Microscopic examination is performed. [facility] Department of Pathology [address] [place] [address] [facility] 08/08/2015 12:3 9 PM PRODUCT OPERATIONS ASSOCIATE 08/08/2015 6:17 PM PRODUCT OPERATIONS ASSOCIATE us Janel Lindsey MD LAB_1 Final Resul t [facility] [phone] from Last 3 Months or Most Recently Relevant to Health Maintenance Insurance SELF INSURED SELF INSURED HP COMM HP FAMILY DENTAL MISC INS THIRD REPUBLICAN LIABILITY Care Teams Jacker Relationship Specialty Start [place] [address] [place] [address] PCP - General Family Practice 07/01/12
--- OUTSIDE RECORDS SUMMARY | 2025-04-09 17:52 | XMS_ITS | Encounter Summary ---
Author Organization [place] Address [address] [facility] [place] [address] Care Team Providers Care Furniture Decals Inspector Name Role Phone Alexandrea Blackwell MD Primary Care Provider [phone] Deidre Mcpherson APRN FACILITIES MAINTENANCE SUPERVISOR Unavaila ble Deidre Mcpherson SENIOR DATA ANALYST FACILITIES MAINTENANCE SUPERVISOR Unavaila ble Rosina Murphy MD Unavailable [phone] Rosina Murphy MD Unavailable [phone] Nica Hua AuD Unavailable [phone] Lis Sharp MD Unavailable Lis Sharp MD Unavailable [phone] Alisa Sheffield APRN FACILITIES MAINTENANCE SUPERVISOR Unavailable [phone] Antolin Chavez MD Unavailable [phone] Encounter Details Date Type Department Care Team (Late st Contact Info) Description 12/16/2022 [facility] [address] [place] [address] Eugenia Milton, GOOD Social History Tobacco Use Types Packs/Day Years Used Date Smoking Tobacco: Never Smokeless Tobacco: Never Alcohol Use Standard Drinks/Week Comments Yes 0 (1 standard drink = 0.6 oz pur e alcohol) 1/week PHQ-2 Answer Date Recorded PHQ-2 Score 0 08/26/2022 Comments No Sex and Gender Information Value Date Recorded Sex Assigned at Female 03/04/2022 6:27 PM CDT Legal Sex Female 3:15 AM ELEVATORS INSPECTOR Gender Identity Female 03/04/2022 6:27 PM CDT Sexual Orientation Bisexual 03/04/2022 6: 27 PM CDT COVID-19 Exposure Response Date Recorded In the last 10 days, have yo u been in contact with someone who was confirmed or suspected to have Coronavirus/COVID-19? No / Unsure 12/15/2022 10:50 AM CDT documented as of this encounter Plan of Treatment Upcoming Encounters Date Type Department Care Team (Late st Contact Info) Description 04/17/2025 1:10 PM CDT Office Visit [facility] [address] [phone] Antolin Chavez MD [address] [place] [phone] 05/29/2025 1:30 PM ELEVATORS INSPECTOR Office Visit [facility] [address] [phone] Antolin Chavez MD [address] [place] [address] [phone] 07/10/2025 3:30 PM ELEVATORS INSPECTOR Office Visit [facility] [address] [phone] Antolin Chavez MD [address] [place] [phone] documented as of this encounter Visit Diagnoses Not on filedocumented in this encounter Care Teams Furniture Decals Inspector Relationship Specialty Start Date End Date Alexandrea Blackwell MD PCP - General 05/26/12 Deidre Mcpherson APRN FACILITIES MAINTENANCE SUPERVISOR [address] [place] [address] [phone] Nurse Practitioner Neurology 07/27/20 Deidre Mcpherson APRN FACILITIES MAINTENANCE SUPERVISOR [address] [place] [address] [phone] Assigned Neuroscience Provider 12/09/20 12/18/24 Rosina Murphy MD [address] [place] [address] [phone] Physical Medicine and Rehabilitation 11/19/21 Rosina Murphy MD [address] [place] [address] [phone] Physical Medicine and Rehabilitation 11/19/21 Nica Hua AuD [address] [place] [address] [phone] Compounding And Finishing Supervisor Audiology 05/21/22 Lis Sharp MD [address] [place] [address] [phone] Otolaryngology 05/21/22 Lis Sharp MD [address] [place] [address] Assigned Surgical Provider 11/01/22 Alisa Sheffield APRN FACILITIES MAINTENANCE SUPERVISOR [address] [place] [address] [phone] Nurse Practitioner Neurology 02/04/24 Antolin Chavez MD [address] [facility] [address] [place], [place] [phone] Assigned Neuroscience Provider 12/19/24 documented as of this encounter
--- OUTSIDE RECORDS SUMMARY | 2025-04-09 17:52 | XMS_ITS | Encounter Summary ---
Author Organization [place] Address [address] [facility] [address] Care Team Providers Care Pharmacy Technology Instructor Name Role Phone Alexandrea Blackwell MD Primary Care Provider [phone] Deidre Mcpherson APRN ARCHITECTURAL REPRESENTATIVE Unavaila ble Deidre Mcpherson MACHINE SHORTHAND REPORTER ARCHITECTURAL REPRESENTATIVE Unavaila ble Rosina Murphy MD Unavailable [phone] Rosina Murphy MD Unavailable [phone] Nica Hua AuD Unavailable [phone] Lis Sharp MD Unavailable [phone] Lis Sharp MD Unavailable [phone] Alisa Sheffield APRN ARCHITECTURAL REPRESENTATIVE Unavailable [phone] Antolin Chavez MD Unavailable [phone] Encounter Details Date Type Department Care Team (Late st Contact Info) Description 02/17/2024 [place] [facility] [address] [place] [address] Connie Arias RN Social History Tobacco Use Types Packs/Day Years Used Date Smoking Tobacco: Never Smokeless Tobacco: Never Alcohol Use Standard Drinks/Week Comments Yes 0 (1 standard drink = 0.6 oz pur e alcohol) 1/week PHQ-2 Answer Date Recorded PHQ-2 Score 0 02/17/2024 Adolescent Education Answer Date Record ed Getting School Help Needed Not on file 03/21 Comments No Sex and Gender Information Value Date Recorded Sex Assigned at Female 03/04/2022 6:27 PM CDT Legal Sex Female 3:15 AM HEAT TREATING OPERATOR Gender Identity Female 03/04/2022 6:27 PM CDT Sexual Orientation Bisexual 03/04/2022 6: 27 PM CDT documented as of this encounter Plan of Treatment Upcoming Encounters Date Type Department Care Team (Late st Contact Info) Description 04/17/2025 1:10 PM CDT Office Visit [facility] [address] [phone] Antolin Chavez MD [address] [place] [address] 784195 05/29/2025 1:30 PM HEAT TREATING OPERATOR Office Visit [facility] [address] [phone] Antolin Chavez MD [address] [place] [address] 07/10/2025 3:30 PM HEAT TREATING OPERATOR Office Visit [facility] [address] [phone] Antolin Chavez MD [address] [place] [address] 784955 documented as of this encounter Visit Diagnoses Not on filedocumented in this encounter Care Teams Pharmacy Technology Instructor Relationship Specialty Start Date End Date Alexandrea Blackwell MD PCP - General 05/26/12 Deidre Mcpherson MACHINE SHORTHAND REPORTER ARCHITECTURAL REPRESENTATIVE [address] [place], [place] [address] [address] Nurse Practitioner Neurology 07/27/20 Deidre Mcpherson APRN ARCHITECTURAL REPRESENTATIVE [address] [place] [address] 37825 Assigned Neuroscience Provider 12/09/20 12/18/24 Rosina Murphy MD [address] [place] [address] 963695 Physical Medicine and Rehabilitation 11/19/21 Rosina Murphy MD [address] [place] [address] 091085 Physical Medicine and Rehabilitation 11/19/21 Nica Hua AuD [address] [place] [address] 939005 Gas Pumping Station Supervisor Audiology 05/21/22 Lis Sharp MD [address] [place] [address] 434555 Otolaryngology 05/21/22 Lis Sharp MD [address] [place] [address] 67281 Assigned Surgical Provider 11/01/22 Alisa Sheffield APRN ARCHITECTURAL REPRESENTATIVE [address] [place] [address] 93636 Nurse Practitioner Neurology 02/04/24 Antolin Chavez MD [address] [facility] 297 [place] [address] Assigned Neuroscience Provider 12/19/24 documented as of this encounter
--- OUTSIDE RECORDS SUMMARY | 2025-04-09 17:52 | XMS_ITS | Encounter Summary ---
Author Organization [place] Address [address] [facility] [place] [address] Care Team Providers Care Correction Officer Supervisor Name Role Phone Alexandrea Blackwell MD Primary Care Provider [phone] Deidre Mcpherson APRN PIANO MOVER Unavaila ble Deidre Mcpherson TRAVEL MANAGER PIANO MOVER Unavaila ble Rosina Murphy MD Unavailable [phone] Rosina Murphy MD Unavailable [phone] Nica Hua AuD Unavailable [phone] Lis Sharp MD Unavailable [phone] Lis Sharp MD Unavailable [phone] Alisa Sheffield APRN PIANO MOVER Unavailable [phone] Antolin Chavez MD Unavailable [phone] Encounter Details Date Type Department Care Team (Late st Contact Info) Description 12/14/2023 [place] Medical Advice [facility] [address] 4th [place] [address] Natasha Mullen MA Social History Tobacco Use Types Packs/Day Years Used Date Smoking Tobacco: Never Smokeless Tobacco: Never Alcohol Use Standard Drinks/Week Comments Yes 0 (1 standard drink = 0.6 oz pur e alcohol) 1/week PHQ-2 Answer Date Recorded PHQ-2 Score 0 08/04/2023 Adolescent Education Answer Date Record ed Getting School Help Needed Not on file 03/21 Comments No Sex and Gender Information Value Date Recorded Sex Assigned at Female 03/04/2022 6:27 PM CDT Legal Sex Female 3:15 AM RETAIL SELLING SPECIALIST Gender Identity Female 03/04/2022 6:27 PM CDT Sexual Orientation Bisexual 03/04/2022 6: 27 PM CDT documented as of this encounter Plan of Treatment Upcoming Encounters Date Type Department Care Team (Late st Contact Info) Description 04/17/2025 1:10 PM CDT Office Visit [facility] Physical Medicine and Rehabilitation [address] [phone] Antolin Chavez MD [address] [place] [address] 845315 05/29/2025 1:30 PM RETAIL SELLING SPECIALIST Office Visit [facility] Clinic [address] [phone] Antolin Chavez MD [address] [place] [address] 07/10/2025 3:30 PM RETAIL SELLING SPECIALIST Office Visit [facility] [address] [phone] Antolin Chavez MD [address] [place] [address] 146065 documented as of this encounter Visit Diagnoses Not on filedocumented in this encounter Care Teams Correction Officer Supervisor Relationship Specialty Start Date End Date Alexandrea Blackwell MD PCP - General 05/26/12 Deidre Mcpherson TRAVEL MANAGER PIANO MOVER [address] [place], [place] [address] [address] Nurse Practitioner Neurology 07/27/20 Deidre Mcpherson APRN PIANO MOVER [address] [place] [address] 40468 Assigned Neuroscience Provider 12/09/20 12/18/24 Rosina Murphy MD [address] [place] [address] [phone] Physical Medicine and Rehabilitation 11/19/21 Rosina Murphy MD [address] [place] [address] 544115 Physical Medicine and Rehabilitation 11/19/21 Nica Hua AuD [address] [place] [address] 185895 Bisque Ware Dipper Audiology 05/21/22 Lis Sharp MD [address] [place] [address] 481095 Otolaryngology 05/21/22 Lis Sharp MD [address] [place] [address] 59493 Assigned Surgical Provider 11/01/22 Alisa Sheffield APRN PIANO MOVER [address] [place] [address] 66198 Nurse Practitioner Neurology 02/04/24 Antolin Chavez MD 420 [facility] 297 [place] [address] Assigned Neuroscience Provider 12/19/24 documented as of this encounter
--- OUTSIDE RECORDS SUMMARY | 2025-04-09 17:52 | XMS_ITS | Encounter Summary ---
Author Organization [place] Address [facility] [place] [address] Care Team Providers Care Senior Engineering Manager Name Role Phone Alexandrea Blackwell MD Primary Care Provider [phone] Lis Sharp MD Unavailable [phone] Deidre Mcpherson APRN ESTATE AND TRUST TAX PRINCIPAL Unavaila ble Deidre Mcpherson APRN ESTATE AND TRUST TAX PRINCIPAL Unavaila ble Mars Canela MD Unavailable [phone] Rosina Murphy MD Unavailable [phone] Rosina Murphy MD Unavailable [phone] Nica Hua Unavailable [phone] Lis Sharp MD Unavailable [phone] Lis Sharp MD Unavailable [phone] Mars Canela MD Unavailable [phone] Lis Sharp MD Unavailable [phone] Alisa Sheffield APRN ESTATE AND TRUST TAX PRINCIPAL Unavailable [phone] Antolin Chavez MD Unavailable [phone] Encounter Details Date Type Department Care Team (Late st Contact Info) Description 09/11/2021 MyC Medical Advice [facility] Physical Medicine and Rehabilitation [address] [phone] Rosina Murphy MD [address] [place] [address]886 Social History Tobacco Use Types Packs/Day Years Used Date Smoking Tobacco: Never Smokeless Tobacco: Never Alcohol Use Standard Drinks/Week Comments Yes 0 (1 standard drink = 0.6 oz pur e alcohol) 1/week PHQ-2 Answer Date Recorded PHQ-2 Score 0 08/07/2021 Comments No Sex and Gender Information Value Date Recorded Sex Assigned at Female 03/04/2022 6:27 PM CDT Legal Sex Female 3:15 AM CONTRACT ADMINISTRATIVE ASSISTANT Gender Identity Female 03/04/2022 6:27 PM CDT Sexual Orientation Bisexual 03/04/2022 6: 27 PM CDT COVID-19 Exposure Response Date Recorded In the last month, have you been in contact with someone who was confirmed or suspected to have Coronavirus / COVID-19? No / Unsure 09/05/2021 3:06 PM CONTRACT ADMINISTRATIVE ASSISTANT documented as of this encounter Plan of Treatment Upcoming Encounters Date Type Department Care Team (Late Contact Info) Description 04/17/2025 1:10 PM CDT Office Visit [facility] Physical Medicine and Rehabilitation [address] [phone] Antolin Chavez MD [address] [place] [address] 22451 05/29/2025 1:30 PM CONTRACT ADMINISTRATIVE ASSISTANT Office Visit [facility] Physical Medicine and Rehabilitation [address] [phone] Antolin Chavez MD [address] [place] [address] 92489 07/10/2025 3:30 PM CONTRACT ADMINISTRATIVE ASSISTANT Office Visit [facility] Physical Medicine and Rehabilitation Clinic [place] [phone] [facility] 3rd [place] [phone] Antolin Chavez MD 420 [facility] 297 [place], [place] 173095 documented as of this encounter Visit Diagnoses Not on filedocumented in this encounter Care Teams Senior Engineering Manager Relationship Specialty Start Date End Date Alexandrea Blackwell MD PCP - General 05/26/12 Lis Sharp MD 420 [facility] 396 [place], [place] 553965 Assigned Surgical Provider 04/20/20 10/12/21 Deidre Mcpherson APRN ESTATE AND TRUST TAX PRINCIPAL [address] [place] [address] 12868 Nurse Practitioner Neurology 07/27/20 Deidre Mcpherson APRN ESTATE AND TRUST TAX PRINCIPAL [address] [place] [address] 91789 Assigned Neuroscience Provider 12/09/20 12/18/24 Mars Canela MD [address] [place] [address] 38634 Assigned Surgical Provider 10/13/21 09/05/22 Rosina Murphy MD [address] [place] [address] 37146 Physical Medicine and Rehabilitation 11/19/21 Rosina Murphy MD [address] [place] [address] 57013 Physical Medicine and Rehabilitation 11/19/21 Nica Hua AuD [address] [place] [address] 82175 Sound System Installer Audiology 05/21/22 Lis Sharp MD [address] [place] [address] 79632 Otolaryngology 05/21/22 Lis Sharp MD [address] [place] [address] 67898 Assigned Surgical Provider 09/06/22 10/24/22 Mars Canela MD [address] [place] [address] 15163 Assigned Surgical Provider 10/25/22 10/31/22 Lis Sharp MD [address] [place] [address] 84502 Assigned Surgical Provider 11/01/22 Alisa Sheffield APRN CNP [address] [place] [address] 00502 Nurse Practitioner Neurology 02/04/24 Antolin Chavez MD [address] [place] [address] 297 [place] [address] Assigned Neuroscience Provider 12/19/24 documented as of this encounter
--- OUTSIDE RECORDS SUMMARY | 2025-04-09 17:52 | XMS_ITS | Encounter Summary ---
Author Organization [place] Address [facility] [place] [address] Care Team Providers Care Machine Precision Engraver Name Role Phone Alexandrea Blackwell MD Primary Care Provider [phone] Lis Sharp MD Unavailable [phone] Deidre Mcpherson APRN MUTUEL DEPARTMENT MANAGER Unavaila ble Deidre Mcpherson APRN MUTUEL DEPARTMENT MANAGER Unavaila ble Mars Canela MD Unavailable [phone] Rosina Murphy MD Unavailable Rosina Murphy MD Unavailable [phone] Nica Hua Unavailable [phone] Lis Sharp MD Unavailable [phone] Lis Sharp MD Unavailable [phone] Mars Canela MD Unavailable [phone] Lis Sharp MD Unavailable [phone] Alisa Sheffield APRN MUTUEL DEPARTMENT MANAGER Unavailable [phone] Antolin Chavez MD Unavailable [phone] Encounter Details Date Type Department Care Team (Late st Contact Info) Description 08/09/2021 MyC Medical Advice [facility] [address] [place] [phone] Noemi Dai, RN Social History Tobacco Use Types Packs/Day Years Used Date Smoking Tobacco: Never Smokeless Tobacco: Never Alcohol Use Standard Drinks/Week Comments Yes 0 (1 standard drink = 0.6 oz pur e alcohol) 1/week PHQ-2 Answer Date Recorded PHQ-2 Score 0 08/07/2021 Comments No Sex and Gender Information Value Date Recorded Sex Assigned at Female 03/04/2022 6:27 PM CDT Legal Sex Female 3:15 AM DEMURRAGE MAN Gender Identity Female 03/04/2022 6:27 PM CDT Sexual Orientation Bisexual 03/04/2022 6: 27 PM CDT COVID-19 Exposure Response Date Recorded In the last month, have you been in contact with someone who was confirmed or suspected to have Coronavirus / COVID-19? No / Unsure 08/07/2021 2:52 PM DEMURRAGE MAN documented as of this encounter Plan of Treatment Upcoming Encounters Date Type Department Care Team (Late st Contact Info) Description 04/17/2025 1:10 PM CDT Office Visit [facility] Medicine [facility] Rehabilitation Clinic [address] [phone] Antolin Chavez MD [address] [place] [address] 05/29/2025 1:30 PM DEMURRAGE MAN Office Visit [facility] [address] [phone] Antolin Chavez MD [address] [place] [address] 86690 07/10/2025 3:30 PM DEMURRAGE MAN Office Visit [facility] Rehabilitation Clinic [address] [phone] Antolin Chavez MD 420 [facility] 297 [place] [address] documented as of this encounter Visit Diagnoses Not on filedocumented in this encounter Care Teams Machine Precision Engraver Relationship Specialty Start Date End Date Alexandrea Blackwell MD PCP - General 05/26/12 Lis Sharp MD 420 [facility] 396 [place] [address] Assigned Surgical Provider 04/20/20 10/12/21 Deidre Mcpherson APRN MUTUEL DEPARTMENT MANAGER [address] [place] [address] 520175 Nurse Practitioner Neurology 07/27/20 Deidre Mcpherson APRN MUTUEL DEPARTMENT MANAGER [address] [place] [address] 86540 Assigned Neuroscience Provider 12/09/20 12/18/24 Mars Canela MD [address] [place] [address] 01532 Assigned Surgical Provider 10/13/21 09/05/22 Rosina Murphy MD [address] [place] [address] 690035 Physical Medicine and Rehabilitation 11/19/21 Rosina Murphy MD [address] [place] [address] 02000 Physical Medicine and Rehabilitation 11/19/21 Nica Hua AuD [address] [place], [place] 025[address] Electric Accounting Machine Operator Audiology 05/21/22 Lis Sharp MD 420 [facility] 396 [place] [address] MD Otolaryngology 05/21/22 Lis Sharp MD 420 [facility] 396 [place], [place] 7[address] Assigned Surgical Provider 09/06/22 10/24/22 Mars Canela MD [address] [place] [address] 105615 Assigned Surgical Provider 10/25/22 10/31/22 Lis Sharp MD [address] 783175 Assigned Surgical Provider 11/01/22 Alisa Sheffield APRN MUTUEL DEPARTMENT MANAGER 9 [place], [place] 798[address] Nurse Practitioner Neurology 02/04/24 Antolin Chavez MD 420 [facility] 297 [place] [address] Assigned Neuroscience Provider 12/19/24 documented as of this encounter
--- OUTSIDE RECORDS SUMMARY | 2025-04-09 17:52 | XMS_ITS | Encounter Summary ---
Author Organization [email or web address] Address [address] [place] [address] Care Team Providers Care Grain I Farmworker Name Role Phone Alexandrea Blackwell MD Primary Care Provider [phone] Encounter Details Date Type Department Care Team (Late st Contact Info) Description 10/19/2017 Correspondence [facility] Obstetrics and Gynecology [address] [place] [address] [phone] Valeria Pastrana MD [address] [place] [address] MEDICAL REQUEST FORM Social History Tobacco Use Types Packs/Day Years Used Date Smoking Tobacco: Never Smokeless Tobacco: Never Alcohol Use Standard Drinks/Week Comments Yes 3 (1 standard drink = 0.6 oz pur e alcohol) special occasions Comments No Sex and Gender Information Value Date Recorded Sex Assigned at Female 02/21/2021 9:37 AM CDT Legal Sex Female 4:20 AM CDT Gender Identity Female 02/21/2021 9:37 AM CDT Sexual Orientation Not on file 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
--- OUTSIDE RECORDS SUMMARY | 2025-04-09 17:52 | XMS_ITS | Encounter Summary ---
Author Organization [place] Address [address] [facility] [place] [address] Care Team Providers Care Feed Project Engineer Name Role Phone Alexandrea Blackwell MD Primary Care Provider [phone] Deidre Mcpherson APRN CYLINDER DIE MACHINE HELPER Unavaila ble Deidre Mcpherson WOMEN'S APPAREL SALESPERSON CYLINDER DIE MACHINE HELPER Unavaila ble Rosina Murphy MD Unavailable [phone] Rosina Murphy MD Unavailable [phone] Nica Hua AuD Unavailable [phone] Lis Sharp MD Unavailable [phone] Lis Sharp MD Unavailable [phone] Alisa Sheffield APRN CYLINDER DIE MACHINE HELPER Unavailable [phone] Antolin Chavez MD Unavailable [phone] Encounter Details Date Type Department Care Team (Late st Contact Info) Description 12/07/2023 MyC Medical Advice [address] 5th [place] [address] Татьяна Gonzalez, RN Social History Tobacco Use Types Packs/Day [...] PM CDT Legal Sex Female 3:15 AM EMOTIONALLY IMPAIRED TEACHER Gender Identity Female 03/04/2022 6:27 PM CDT Sexual Orientation Bisexual 03/04/2022 6: 27 PM CDT documented as of this encounter Plan of Treatment Upcoming Encounters Date Type Department Care Team (Late st Contact Info) Description 04/17/2025 1:10 PM CDT Office Visit [facility] Physical Medicine and Rehabilitation [address] [phone] Antolin Chavez MD [address] [place] [address] 15721 05/29/2025 1:30 PM EMOTIONALLY IMPAIRED TEACHER Office Visit [facility] Physical Medicine and Rehabilitation Clinic [address] [phone] Antolin Chavez MD [address] [place] [address] 63636 07/10/2025 3:30 PM EMOTIONALLY IMPAIRED TEACHER Office Visit [facility] Physical Medicine and Rehabilitation Clinic [address] [phone] Antolin Chavez MD [address] [place] [address] 417995 documented as of this encounter Visit Diagnoses Not on filedocumented in this encounter Care Teams Feed Project Engineer Relationship Specialty Start Date End Date Alexandrea Blackwell MD PCP - General 05/26/12 Deidre Mcpherson APRN CYLINDER DIE MACHINE HELPER [address] [place], [place] [address], [place] [address] Nurse Practitioner Neurology 07/27/20 Deidre Mcpherson APRN CYLINDER DIE MACHINE HELPER [address] [place] [address] 43277 Assigned Neuroscience Provider 12/09/20 12/18/24 Rosina Murphy MD [address] [place] [address] [phone] Physical Medicine and Rehabilitation 11/19/21 Rosina Murphy MD [address] [place] [address] 963315 Physical Medicine and Rehabilitation 11/19/21 Nica Hua AuD [address] [place] [address] 467395 Hand Tile Maker Audiology 05/21/22 Lis Sharp MD [address] [place] [address] 314265 Otolaryngology 05/21/22 Lis Sharp MD [address] [place] [address] 90189 Assigned Surgical Provider 11/01/22 lAisa Sheffield APRN CYLINDER DIE MACHINE HELPER [address] [place] [address] 35117 Nurse Practitioner Neurology 02/04/24 Antolin Chavez MD [address] [address] Assigned Neuroscience Provider 12/19/24 documented as of this encounter
--- OUTSIDE RECORDS SUMMARY | 2025-04-09 17:52 | XMS_ITS | Encounter Summary ---
Author Organization [place] Address [address] [facility] [place] [address] Care Team Providers Care Resident Athletic Trainer Name Role Phone Alexandrea Blackwell MD Primary Care Provider [phone] Deidre Mcpherson APRN TRUCK REPAIR SERVICE ESTIMATOR Unavaila ble Deidre Mcpherson HYDRO SPRAYER OPERATOR TRUCK REPAIR SERVICE ESTIMATOR Unavaila ble Rosina Murphy MD Unavailable [phone] Rosina Murphy MD Unavailable [phone] Nica Hua AuD Unavailable [phone] Lis Sharp MD Unavailable [phone] Lis Sharp MD Unavailable [phone] Alisa Sheffield APRN TRUCK REPAIR SERVICE ESTIMATOR Unavailable [phone] Antolin Chavez MD Unavailable [phone] Encounter Details Date Type Department Care Team (Late st Contact Info) Description 11/09/2023 [facility] [address] 4th [place] [address] Natasha Mullen MA Social History [...] PM CDT Legal Sex Female 3:15 AM HIGH SCHOOL DIRECTOR Gender Identity Female 03/04/2022 6:27 PM CDT Sexual Orientation Bisexual 03/04/2022 6: 27 PM CDT documented as of this encounter Plan of Treatment Upcoming Encounters Date Type Department Care Team (Late st Contact Info) Description 04/17/2025 1:10 PM CDT Office Visit [facility] Physical Medicine and Rehabilitation [address] [phone] Antolin Chavez MD [address] [place] [address] 809335 05/29/2025 1:30 PM HIGH SCHOOL DIRECTOR Office Visit [facility] Rehabilitation Clinic [address] [phone] Antolin Chavez MD [address] [place] [address] 07/10/2025 3:30 PM HIGH SCHOOL DIRECTOR Office Visit [facility] Rehabilitation Clinic [address] [phone] Antolin Chavez MD [address] [place] [address] 535795 documented as of this encounter Visit Diagnoses Not on filedocumented in this encounter Care Teams Resident Athletic Trainer Relationship Specialty Start Date End Date Alexandrea Blackwell MD PCP - General 05/26/12 Deidre Mcpherson HYDRO SPRAYER OPERATOR TRUCK REPAIR SERVICE ESTIMATOR [address] [place], [place] [address] [address] Nurse Practitioner Neurology 07/27/20 Deidre Mcpherson APRN TRUCK REPAIR SERVICE ESTIMATOR [address] [place] [address]40 Assigned Neuroscience Provider 12/09/20 12/18/24 Rosina Murphy MD [address] [place] [address] 064665 Physical Medicine and Rehabilitation 11/19/21 Rosina Murphy MD [address] [place] [address] 294275 Physical Medicine and Rehabilitation 11/19/21 Nica Hua AuD [address] [place] [address] 853255 Salesperson Furs Audiology 05/21/22 Lis Sharp MD [address] [place] [address] 448325 Otolaryngology 05/21/22 Lis Sharp MD [address] [place] [address] 09766 Assigned Surgical Provider 11/01/22 Alisa Sheffield APRN TRUCK REPAIR SERVICE ESTIMATOR [address] [place] [address] Nurse Practitioner Neurology 02/04/24 Antolin Chavez MD [address] [facility] [address] [place] [address] Assigned Neuroscience Provider 12/19/24 documented as of this encounter
--- OUTSIDE RECORDS SUMMARY | 2025-04-09 17:52 | XMS_ITS | Encounter Summary ---
Author Organization [place] Address [address] [facility] [address] Care Team Providers Care News Camera Operator Name Role Phone Alexandrea Blackwell MD Primary Care Provider Deidre Mcpherson APRN PEAT SHREDDER TENDER Unavaila ble Deidre Mcpherson APRN PEAT SHREDDER TENDER Unavaila ble Rosina Murphy MD Unavailable [phone] Rosina Murphy MD Unavailable [phone] Nica Hua AuD Unavailable [phone] Lis Sharp MD Unavailable [phone] Lis Sharp MD Unavailable Alisa Sheffield APRN PEAT SHREDDER TENDER Unavailable [phone] Antolin Chavez MD Unavailable [phone] Encounter Details Date Type Department Care Team (Late st Contact Info) Description 03/09/2023 [facility] Neurology Clinic [address] [place] [address] Eugenia Milton, GOOD Social History [...] PM CDT Legal Sex Female 3:15 AM AUTOMOBILE SERVICE STATION ATTENDANT Gender Identity Female 03/04/2022 6:27 PM CDT Sexual Orientation Bisexual 03/04/2022 6: 27 PM CDT COVID-19 Exposure Response Date Recorded In the last 10 days, have yo u been in contact with someone who was confirmed or suspected to have Coronavirus/COVID-19? No / Unsure 03/12/2023 3:08 PM CDT documented as of this encounter Plan of Treatment Upcoming Encounters Date Type Department Care Team (Late st Contact Info) Description 04/17/2025 1:10 PM CDT Office Visit [facility] Physical Medicine and Rehabilitation Clinic [address] [phone] Antolin Chavez MD [address] [place] [address] 154235 05/29/2025 1:30 PM AUTOMOBILE SERVICE STATION ATTENDANT Office Visit [facility] Physical Medicine and Rehabilitation Clinic [address] [phone] Antolin Chavez MD [address] [place] [address] 332375 07/10/2025 3:30 PM AUTOMOBILE SERVICE STATION ATTENDANT Office Visit [facility] Physical Medicine and Rehabilitation Clinic [address] [phone] Antolin Chavez MD [address] [place] [address] 713285 documented as of this encounter Visit Diagnoses Not on filedocumented in this encounter Care Teams News Camera Operator Relationship Specialty Start Date End Date Alexandrea Blackwell MD PCP - General 05/26/12 Deidre Mcpherson APRN PEAT SHREDDER TENDER [address] [place] [address] 738955 Nurse Practitioner Neurology 07/27/20 Deidre Mcpherson APRN PEAT SHREDDER TENDER [address] [place] [address] 489355 Assigned Neuroscience Provider 12/09/20 12/18/24 Rosina Murphy MD [address] [place] [address] 116585 Physical Medicine and Rehabilitation 11/19/21 Rosina Murphy MD [address] [place] [address] 508095 Physical Medicine and Rehabilitation 11/19/21 Nica Hua AuD [address] [place] [address] 367875 Insurance Solicitor Audiology 05/21/22 Lis Sharp MD [address] [place] [address] 766335 Otolaryngology 05/21/22 Lis Sharp MD [address] [place] [address] 86418 Assigned Surgical Provider 11/01/22 Alisa Sheffield APRN PEAT SHREDDER TENDER [address] [place] [address] 740525 Nurse Practitioner Neurology 02/04/24 Antolin Chavez MD 420 [facility] 297 [place], [place] 499525 Assigned Neuroscience Provider 12/19/24 documented as of this encounter
--- OUTSIDE RECORDS SUMMARY | 2025-04-09 17:52 | XMS_ITS | Encounter Summary ---
Author Organization [place] Address [address] [facility] [place] [address] Care Team Providers Care Interior Decorator Paperhanging Name Role Phone Alexandrea Blackwell MD Primary Care Provider [phone] Deidre Mcpherson APRN CEMENTER MACHINE APPLICATOR Unavaila ble Deidre Mcpherson FOUNDER & CEO CEMENTER MACHINE APPLICATOR Unavaila ble Rosina Murphy MD Unavailable [phone] Rosina Murphy MD Unavailable [phone] Nica Hua AuD Unavailable [phone] Lis Sharp MD Unavailable [phone] Lis Sharp MD Unavailable [phone] Alisa Sheffield APRN CEMENTER MACHINE APPLICATOR Unavailable [phone] Antolin Chavez MD Unavailable [phone] Encounter Details Date Type Department Care Team (Late st Contact Info) Description 01/14/2024 [facility]ice [address] 5th [place] [address] Татьяна Gonzalez, RN Social History [...] PM CDT Legal Sex Female 3:15 AM QUALITY ASSURANCE TEST PROGRAM MANAGER Gender Identity Female 03/04/2022 6:27 PM CDT Sexual Orientation Bisexual 03/04/2022 6: 27 PM CDT documented as of this encounter Plan of Treatment Upcoming Encounters Date Type Department Care Team (Late st Contact Info) Description 04/17/2025 1:10 PM CDT Office Visit [facility] Physical Medicine and Rehabilitation [address] [phone] Antolin Chavez MD [address] [place] [address] 05/29/2025 1:30 PM QUALITY ASSURANCE TEST PROGRAM MANAGER Office Visit [facility] Physical Medicine and Rehabilitation Clinic [address] [phone] Antolin Chavez MD [address] [place] [address] 07/10/2025 3:30 PM QUALITY ASSURANCE TEST PROGRAM MANAGER Office Visit [facility] Physical Medicine and Rehabilitation Clinic [address] [phone] Antolin Chavez MD [address] [place] [address] 797675 documented as of this encounter Visit Diagnoses Not on filedocumented in this encounter Care Teams Interior Decorator Paperhanging Relationship Specialty Start Date End Date Alexandrea Blackwell MD PCP - General 05/26/12 Deidre Mcpherson APRN CEMENTER MACHINE APPLICATOR [address] [place], [place] [address] [address] Nurse Practitioner Neurology 07/27/20 Deidre Mcpherson APRN CEMENTER MACHINE APPLICATOR [address] [place] [address] 71471 Assigned Neuroscience Provider 12/09/20 12/18/24 Rosina Murphy MD [address] [place] [address] 912305 Physical Medicine and Rehabilitation 11/19/21 Rosina Murphy MD [address] [place] [address] 629955 Physical Medicine and Rehabilitation 11/19/21 Nica Hua AuD [address] [place] [address] 994775 Repair Operator Audiology 05/21/22 Lis Sharp MD [address] [place] [address] 375155 Otolaryngology 05/21/22 Lis Sharp MD [address] [place] [address] 96850 Assigned Surgical Provider 11/01/22 Alisa Sheffield APRN CEMENTER MACHINE APPLICATOR [address] [place] [address] 20302 Nurse Practitioner Neurology 02/04/24 Antolin Chavez MD [address] [address] Assigned Neuroscience Provider 12/19/24 documented as of this encounter
--- OUTSIDE RECORDS SUMMARY | 2025-04-09 17:52 | XMS_ITS | Encounter Summary ---
[facility] [address] [address] Care Team Providers Care Scribing Machine Operator Name Role Phone Alexandrea Blackwell MD Primary Care Provider [phone] Encounter Details Date Type Department Care Team (Latest Contact Info) Description 08/21/2017 Correspondence [facility] [address] [place] [address] Nicci Chandler MBBS [address] [place] [address] [phone] INSTRUCTIONS AFTER NORMAL COLONOSCOPY Social History Tobacco Use Types Packs/Day Years [...] Last Indicated Resolved Time R/O COVID19 06/03/2021 06/03/202106/0406/04/2021 2:15 PM JAVA SECURITY ENGINEER documented as of this encounter Care Teams Scribing Machine Operator Relationship Specialty Start [place] [address] [place] [address] PCP - General Family Practice 07/01/12 documented as of this encounter
--- OUTSIDE RECORDS SUMMARY | 2025-04-09 17:53 | XMS_ITS | Clinical Summary ---
Author Organization [employer] [facility] Address [address] [place] [address] Care Team Providers Care Concrete Carpenter Name Role Phone Haim Marion MD Primary Care Provider [phone] Allergies Active Allergy Reactions Criticality Noted Date Comments Penicillins Rash 12/04/2009 Shellfish Derived Hives,Throat Swelling/Closing High 09/02/2017 Sulfa (Sulfonamide Antibiotics) Rash 12/04/2009 Medications traMADol (ULTRAM) 50 mg tablet Take 50 mg by mouth every 6 hours if needed for Pain. 06/12/20 17 Active cetirizine (ZYRTEC) 10 mg tablet Take 10 mg by mouth once daily. Active PARoxetine (PAXIL) 40 mg tablet Take 40 mg by mouth at bedtime. Active traZODone (DESYREL) 100 mg tablet Take 100 mg by mouth at bedtime. Active SUMAtriptan (IMITREX) 100 mg tablet Take 100 mg by mouth 2 times daily if needed for Migraine. Give at minimum 2hrs apart. Max Dose: 200mg per 24hrs. Active ibuprofen (ADVIL; MOTRIN) 200 mg tabletIndication s:S/P hysterectomy Take 1-3 tablets by mouth every 6 hours if needed for Pain. 100 tablet 09/05/19 18 Active oxyCODONE-acetam inophen, 5-325 mg, (PERCOCET) 5-325 mg per tabletIndication s:S/P hysterectomy Take 1-2 tablets by mouth every 4 hours if needed for Pain Max acetaminophen dose: 4000mg in 24 hrs. 15 tablet 09/04/2017 9:38 AM INTERNETWORKING TECHNICIAN 09/05/19 18 Active sennosides-docus ate, 8.6-50 mg, (SENOKOT S) 8.6-50 mg tabletIndication s:S/P hysterectomy Take 1 tablet by mouth 2 times daily. 50 tablet 09/05/19 18 Active ibuprofen (ADVIL; MOTRIN) 600 mg tabletIndication s:Facial contusion, initial encounter,Cervic al strain, acute, initial encounter Take 1 Tablet (600 mg) by mouth every 6 hours if needed for Pain. Take with food. 30 Tablet 12/10/19 24 Active lidocaine 5 % topical patchIndications :Cervical strain, acute, initial encounter Apply to intact skin to cover most painful area for max 12hr per 24hr period. 15 Patch 12/10/19 24 Active methocarbamoL (ROBAXIN) 500 mg tabletIndication s:Cervical strain, acute, initial encounter Take 2 Tablets (1,000 mg) by mouth 3 times daily if needed for Muscle Spasm. 30 Tablet 12/10/19 24 Active Active Problems Problem Noted Date Diagnosed Date Endometriosis 09/04/2017 Dysmenorrhea 09/04/2017 S/P total hysterectomy and bilateral salpingo-oo phorectomy 09/04/2017 Immunizations Immunization Administration Dates Next Due Influenza, IIV3 (Age >=3 years) 05/18/2017 Family History Relation Name Status Comments Father Alive Mother Alive Social History Tobacco Use Types Packs/Day Years Used Date Smoking Tobacco: Never Smokeless Tobacco: Never Comments No Sex and Gender Information Value Date Recorded Sex Assigned at Not on file Legal Sex Female 7:55 AM INTERNETWORKING TECHNICIAN Gender Identity Not on file Sexual Orientation Not on file Obstetrics History Last Filed Vital Signs Vital Sign Reading Time Taken Comments Blood Pressure 107/84 12/10/2023 4:27 PM CDT Pulse 62 12/10/2023 6:45 PM CDT Temperature 36.8 C (98.3 F) 12/10/2023 4:27 PM CDT Respiratory Rate 16 12/10/2023 6:45 PM CDT Oxygen Saturation 99% 12/10/2023 6:45 PM CDT Inhaled Oxygen Concentration - - Weight 66.7 kg (147 lb) 12/10/2023 4:27 PM CDT Height 167.6 cm (5' 6) 09/03/2017 6:04 AM INTERNETWORKING TECHNICIAN Body Mass Index 23.73 09/03/2017 6:04 AM INTERNETWORKING TECHNICIAN Plan of Treatment Health Maintenance Due Date Last Done Comments Tetanus booster 1984 Depression screening for age 12+ 1985 HIV for age 15-65 1988 BMI (ht and wt on same day) for age 18+ 1991 Hepatitis C screening for age 18-79 1991 Hepatitis B series for 19+ ( 1 of 3 - 19+ 3-dose series) 1992 Pap test for age 21-65 1994 Colonoscopy through age 75 2018 Lipids for age 45-75 2018 Mammogram for age 45-75 2018 Pneumococcal series for age 50+ (1 of 1 - PCV) 2023 Zoster (shingles) series for age 50+ (1 of 2) 2023 COVID-19 vaccine series (3 - season) 2025 09/05/2020, 08/15/2020 Influenza Vaccine (#1) 2025 05/18/2017 RSV vaccine for adults or pr egnancy (1 - 1-dose 75+ series) 2048 Insurance DISTINCTIONS [employer] [address] [employer] BOB [address] Advance Directives * Full Code (Latest Code Status on File) Date Activated Date Inactivated Comments 09/03/2017 3:11 PM 09/04/2017 4:33 PM * Full Code Date Activated Date Inactivated Comments 09/03/2017 5:40 AM 09/03/2017 2:19 PM * Full Code Date Activated Date Inactivated Comments 08/30/2010 10:57 AM 08/30/2010 10:26 PM Care Teams Concrete Carpenter Relationship Specialty Start Date End Date Haim Marion MD [address] [place] [address] PCP - General Family Practice 12/10/23
--- OUTSIDE RECORDS SUMMARY | 2025-04-09 17:53 | XMS_ITS | Encounter Summary ---
Author Organization [place] Address [address] [facility] [address] Care Team Providers Care Site Controller Name Role Phone Alexandrea Blackwell MD Primary Care Provider [phone] Deidre Mcpherson APRN HAY RAKE OPERATOR Unavaila ble Deidre Mcpherson WEATHER ANCHOR HAY RAKE OPERATOR Unavaila ble Rosina Murphy MD Unavailable [phone] Rosina Murphy MD Unavailable [phone] Nica Hua AuD Unavailable [phone] Lis Sharp MD Unavailable [phone] Lis Sharp MD Unavailable [phone] Alisa Sheffield APRN HAY RAKE OPERATOR Unavailable [phone] Antolin Chavez MD Unavailable [phone] Encounter Details Date Type Department Care Team (Late st Contact Info) Description 09/05/2024 [facility] [address] 4th [place] [address] Gris Oneal, RN Social History Tobacco Use Types Packs/Day [...] PM CDT Legal Sex Female 3:15 AM SIGNAL TECHNICIAN Gender Identity Female 03/04/2022 6:27 PM CDT Sexual Orientation Bisexual 03/04/2022 6: 27 PM CDT documented as of this encounter Plan of Treatment Upcoming Encounters Date Type Department Care Team (Late st Contact Info) Description 04/17/2025 1:10 PM CDT Office Visit [facility] [address] [phone] Antolin Chavez MD [address] [place] [address] [phone] 05/29/2025 1:30 PM SIGNAL TECHNICIAN Office Visit [facility] [address] [phone] Antolin Chavez MD [address] [place] [address] 737285 07/10/2025 3:30 PM SIGNAL TECHNICIAN Office Visit [facility] [address] [phone] Antolin Chavez MD [address] [place] [address] 63995 documented as of this encounter Visit Diagnoses Not on filedocumented in this encounter Care Teams Site Controller Relationship Specialty Start Date End Date Alexandrea Blackwell MD PCP - General 05/26/12 Deidre Mcpherson APRN HAY RAKE OPERATOR [address] [place] [address] Nurse Practitioner Neurology 07/27/20 Deidre Mcpherson APRN HAY RAKE OPERATOR [address] [place] [address] 8[address]39 Assigned Neuroscience Provider 12/09/20 12/18/24 Rosina Murphy MD [address] [place] [address] Physical Medicine and Rehabilitation 11/19/21 Rosina Murphy MD [address] [place] [address] 41730 Physical Medicine and Rehabilitation 11/19/21 Nica Hua, [place] [address] [place] [address] 47628 Carpet Winder Audiology 05/21/22 Lis Sharp MD 420 [facility] [address] [place] [address] Otolaryngology 05/21/22 Lis Sharp MD 420 [facility] [address] [place], [place] 423905 Assigned Surgical Provider 11/01/22 Alisa Sheffield APRN CNP [address] [place] [address] [phone] Nurse Practitioner Neurology 02/04/24 Antolin Chavez MD 420 [facility] [address] [place], [place] 234265 Assigned Neuroscience Provider 12/19/24 documented as of this encounter
--- OUTSIDE RECORDS SUMMARY | 2025-04-09 17:53 | XMS_ITS | Encounter Summary ---
Author Organization [employer] Address [address], [place] [address] Care Team Providers Care Residential Worker Name Role Phone Alexandrea Blackwell MD Primary Care Provider [phone] Encounter Details Date Type Department Care Team (Late st Contact Info) Description 08/08/2012 Emergency Room External to [facility], Provider URINARY TRACT INFECTION Social History Tobacco Use Types Packs/Day Years Used Date Smoking Tobacco: Never Smokeless Tobacco: Never Alcohol Use Standard Drinks/Week Comments Yes 0 (1 standard drink = 0.6 oz pur e alcohol) 1 drink every other month Comments No Sex and Gender Information Value Date Recorded Sex Assigned at Female 02/21/2021 9:37 AM CDT Legal Sex Female 4:20 AM CDT Gender Identity Female 02/21/2021 9:37 AM CDT Sexual Orientation Not on file documented as of this encounter Progress Notes * [facility], Provider - 08/08/2012 12:00 AM CST documented in this encounter Plan of Treatment Not on file documented as of this encounter Visit Diagnoses Not on filedocumented in this encounter Additional Health Concerns Infection Onset Date Last Indicated Resolved Time R/O COVID19 06/03/2021 06/03/2021 06/04/2021 2:15 PM DRAWING TRACER documented as of this encounter Care Teams Residential Worker Relationship Specialty Start [place] [address] [place] [address] PCP - General Family Practice 07/01/12 documented as of this encounter
--- OUTSIDE RECORDS SUMMARY | 2025-04-09 17:53 | XMS_ITS | Encounter Summary ---
Author Organization [employer] Address [address] [address] Care Team Providers Care Lurer Name Role Phone Alexandrea Blackwell MD Primary Care Provider [phone] Encounter Details Date Type Department Care Team (Late st Contact Info) Description 08/15/2013 Emergency Room External to [facility], Provider SORE THROAT Social History Tobacco Use Types Packs/Day Years [...] as of this encounter Progress Notes * [facility], Provider - 08/15/2013 12:00 AM CST documented in this encounter Plan of Treatment Not on file documented as of this encounter Visit Diagnoses Not on filedocumented in this encounter Additional Health Concerns Infection Onset Date Last Indicated Resolved Time R/O COVID19 06/03/2021 06/03/2021 06/04/2021 2:15 PM LEGAL SECRETARY RECEPTIONIST documented as of this encounter Care Teams Lurer Relationship Specialty Start [place] [address] [place] [address] PCP - General Family Practice 07/01/12 documented as of this encounter
--- OUTSIDE RECORDS SUMMARY | 2025-04-09 17:53 | XMS_ITS | Encounter Summary ---
Author Organization [place] Address [address] [facility] [place] [address] Care Team Providers Care Event Host Name Role Phone Alexandrea Blackwell MD Primary Care Provider Lis Sharp MD Unavailable Deidre Mcpherson APRN FUNDRAISER Unavaila ble Tico Mensah MD Unavailable Deidre Mcpherson APRN FUNDRAISER Unavaila ble Mars Canela MD Unavailable [phone] Rosina Murphy MD Unavailable [phone] Rosina Murphy MD Unavailable Nica Hua Unavailable Lis Sharp MD Unavailable [phone] Lis Sharp MD Unavailable Mars Canela MD Unavailable [phone] Lis Sharp MD Unavailable Alisa Sheffield APRN FUNDRAISER Unavailable [phone] Antolin Chavez MD Unavailable [phone] Encounter Details Date Type Department Care Team (Late st Contact Info) Description 11/19/2020 MyC Medical Advice [facility] [address] [phone] Eugenia Milton, RN Social History Tobacco Use Types Packs/Day Years Used Date Smoking Tobacco: Never Smokeless Tobacco: Never Alcohol Use Standard Drinks/Week Comments Yes 0 (1 standard drink = 0.6 oz pur e alcohol) 1/week PHQ-2 Answer Date Recorded PHQ-2 Score 0 11/05/2020 Comments No Sex and Gender Information Value Date Recorded Sex Assigned at Female 03/04/2022 6:27 PM CDT Legal Sex Female 3:15 AM SECOND OPERATOR Gender Identity Female 03/04/2022 6:27 PM CDT Sexual Orientation Bisexual 03/04/2022 6: 27 PM CDT COVID-19 Exposure Response Date Recorded In the last month, have you been in contact with someone who was confirmed or suspected to have Coronavirus / COVID-19? No / Unsure 11/05/2020 9:35 AM CDT documented as of this encounter Plan of Treatment Upcoming Encounters Date Type Department Care Team (Late st Contact Info) Description 04/17/2025 1:10 PM CDT Office Visit [facility] [address] [phone] Antolin Chavez MD [address] [place] [address] 05/29/2025 1:30 PM SECOND OPERATOR Office Visit [facility] [address] [phone] Antolin Chavez MD [address] [place] [address] 39461 07/10/2025 3:30 PM SECOND OPERATOR Office Visit [facility] Rehabilitation [facility] [place] [address] [facility] 3rd [place] [phone] Antolin Chavez MD [address] [facility] [address] [place], [place] 8195[address] documented as of this encounter Visit Diagnoses Not on filedocumented in this encounter Care Teams Event Host Relationship Specialty Start Date End Date Alexandrea Blackwell MD PCP - General 05/26/12 Lis Sharp MD [address] [place] [address] [address] [place], [place] 216025 Assigned Surgical Provider 04/20/20 10/12/21 Deidre Mcpherson APRN FUNDRAISER [address] [place] [address] Nurse Practitioner Neurology 07/27/20 Tico Mensah MD [address] [place] [address] 930205 Assigned Neuroscience Provider 11/11/20 12/08/20 Deidre Mcpherson APRN FUNDRAISER [address] [place] [address] 17295 Assigned Neuroscience Provider 12/09/20 12/18/24 Mars Canela MD [address] [place] [address] 953065 Assigned Surgical Provider 10/13/21 09/05/22 Rosina Murphy MD [address] [place] [address] 48170 Physical Medicine and Rehabilitation 11/19/21 Rosina Murphy MD [address] [place] [address] 43749 Physical Medicine and Rehabilitation 11/19/21 Nica Hua AuD [address] [place] [address] 95052 Flight Surveyor Audiology 05/21/22 Lis Sharp MD [address] [place] [address] 27625 Otolaryngology 05/21/22 Lis Sharp MD [address] [place] [address] 24706 Assigned Surgical Provider 09/06/22 10/24/22 Mars Canela MD [address] [place] [address] 78044 Assigned Surgical Provider 10/25/22 10/31/22 Lis Sharp MD [address] [place] [address] 48882 Assigned Surgical Provider 11/01/22 Alisa Sheffield APRN CNP [address] [place] [address] 85366 Nurse Practitioner Neurology 02/04/24 Antolin Chavez MD [address] [place] [address] [address] [place], [place] 470275 Assigned Neuroscience Provider 12/19/24 documented as of this encounter
--- OUTSIDE RECORDS SUMMARY | 2025-04-09 17:53 | XMS_ITS | Encounter Summary ---
Author Organization [place] Address [address] [address] Care Team Providers Care Receipt And Report Clerk Name Role Phone Alexandrea Blackwell MD Primary Care Provider [phone] Encounter Details Date Type Department Care Team (Late st Contact Info) Description 06/30/2012 Outside Hospital External to [facility], Cam SIMMONS OPERATIVE REPORT Social History Tobacco Use Types Packs/Day Years [...] as of this encounter Progress Notes * [facility] Provider - 06/30/2012 12:00 AM CST UME RENTAL CLERK documented in this encounter Plan of Treatment Not on file documented as of this encounter Visit Diagnoses Not on filedocumented in this encounter Additional Health Concerns Infection Onset Date Last Indicated Resolved Time R/O COVID19 06/03/2021 06/03/2021 06/04/2021 2:15 PM COSTUME RENTAL CLERK documented as of this encounter Care Teams Receipt And Report Clerk Relationship Specialty [place] [address] [place] [address] PCP - General Family Practice 07/01/12 documented as of this encounter
--- OUTSIDE RECORDS SUMMARY | 2025-04-09 17:53 | XMS_ITS | Encounter Summary ---
Author Organization [email or web address] Address [address] [address] Care Team Providers Care Director Of Clinical Services Name Role Phone Alexandrea Blackwell MD Primary Care Provider [phone] Encounter Details Date Type Department Care Team (Late st Contact Info) Description 06/30/2012 Outside Hospital External to [facility] Lenoxnellie, Provider OPERATIVE SPECIAL PROCEDURES Social History Tobacco Use Types Packs/Day Years [...] of this encounter Progress Notes * Zaid Lenoxnellie, Provider - 06/30/2012 12:00 AM CST RVISOR KOSHER DIETARY SERVICE documented in this encounter Plan of Treatment Not on file documented as of this encounter Visit Diagnoses Not on filedocumented in this encounter Additional Health Concerns Infection Onset Date Last Indicated Resolved Time R/O COVID19 06/03/2021 06/03/2021 06/04/2021 2:15 PM SUPERVISOR KOSHER DIETARY SERVICE documented as of this encounter Care Teams Director Of Clinical Services Relationship Specialty [place] [address] [place] [address] PCP - General Family Practice 07/01/12 documented as of this encounter
--- OUTSIDE RECORDS SUMMARY | 2025-04-09 17:53 | XMS_ITS | Encounter Summary ---
Author Organization [employer] Address [address] [place] [address] Care Team Providers Care Foundation Drill Operator Helper Name Role Phone Alexandrea Blackwell MD Primary Care Provider [phone] Encounter Details Date Type Department Care Team (Late st Contact Info) Description 03/08/2017 Emergency Room External to [facility] SINUS PRESSURE Social History Tobacco Use Types Packs/Day Years Used Date Smoking Tobacco: Never Smokeless Tobacco: Never Alcohol Use Standard Drinks/Week Comments Yes 3 (1 standard drink = 0.6 oz pur e alcohol) Comments No Sex and Gender Information [...] R/O COVID19 06/03/2021 06/03/2021 06/04/2021 2:15 PM GED PREPARATION TEACHER documented as of this encounter Care Teams Foundation Drill Operator Helper Relationship Specialty [place] [address] [place] [address] PCP - General Family Practice 07/01/12 documented as of this encounter
--- OUTSIDE RECORDS SUMMARY | 2025-04-09 17:53 | XMS_ITS | Encounter Summary ---
Author Organization [employer] Address [address], [place] [address] Care Team Providers Care Clinic Md Associate Name Role Phone Alexandrea Blackwell MD Primary Care Provider [phone] Encounter Details Date Type Department Care Team (Late st Contact Info) Description 11/12/2012 Emergency Room External to Emergency, Provider BITTEN BY DOG Social History Tobacco Use Types Packs/Day Years [...] as of this encounter Progress Notes * Emergency, Provider - 11/12/2012 12:00 AM CDT documented in this encounter Plan of Treatment Not on file documented as of this encounter Visit Diagnoses Not on filedocumented in this encounter Additional Health Concerns Infection Onset Date Last Indicated Resolved Time R/O COVID19 06/03/2021 06/03/2021 06/04/2021 2:15 PM INTEGRATION ANALYST documented as of this encounter Care Teams Clinic Md Associate Relationship Specialty [place] [address] [place] [address] PCP - General Family Practice 07/01/12 documented as of this encounter
--- OUTSIDE RECORDS SUMMARY | 2025-04-09 17:53 | XMS_ITS | Encounter Summary ---
Author Organization [facility] Address [address] [address] Care Team Providers Care Shake Cutter Name Role Phone Alexandrea Blackwell MD Primary Care Provider [phone] Encounter Details Date Type Department Care Team (Latest Contact Info) Description 08/21/2017 Consent for Procedure/Treatm ent [facility] [address] [phone] Nicci Chandler MBBS [address] [place] [address] INFORMED CONSENT FOR TREATMENTS OR PROCEDURES Social History Tobacco Use Types Packs/Day [...] R/O COVID19 06/03/2021 06/03/2021 06/04/2021 2:15 PM CLINICAL DATA COORDINATOR documented as of this encounter Care Teams Shake Cutter Relationship Specialty [place] [address] [place] [address] PCP - General Family Practice 07/01/12 documented as of this encounter
--- OUTSIDE RECORDS SUMMARY | 2025-04-09 17:53 | XMS_ITS | Encounter Summary ---
Author Organization [employer] Address [address] [address] Care Team Providers Care Dean Of Faculty Name Role Phone Alexandrea Blackwell MD Primary Care Provider [phone] Encounter Details Date Type Department Care Team (Late st Contact Info) Description 02/15/2025 Results Follow-Up [facility] [address] [place], [place] [phone] Bren Daniels MD [address] [place] [address] Social History Tobacco Use Types Packs/Day Years [...] as of this encounter Progress Notes * Bren Daniels MD - 02/15/2025 4:33 PM CDT [employer] message sent with benign result documented in this encounter Plan of Treatment Not on file documented as of this encounter Visit Diagnoses Not on filedocumented in this encounter Care Teams Dean Of Faculty Relationship Specialty Start [place] [address] [place] [address] PCP - General Family Practice 07/01/12 documented as of this encounter
--- OUTSIDE RECORDS SUMMARY | 2025-04-09 17:53 | XMS_ITS | Encounter Summary ---
Author Organization [employer] Address [address] [place] [address] Care Team Providers Care Edge Bander Operator Name Role Phone Alexandrea Blackwell MD Primary Care Provider [phone] Encounter Details Date Type Department Care Team (Late st Contact Info) Description 11/09/2013 [facility] [address] [facility] [place] [address] Kelli Kong MD LETTER [facility] Social History Tobacco Use Types Packs/Day Years [...] R/O COVID19 06/03/2021 06/03/2021 06/04/2021 2:15 PM WIRE PHOTO OPERATOR NEWS documented as of this encounter Care Teams Edge Bander Operator Relationship Specialty [place] [address] [place], [place] [id number] PCP - General Family Practice 07/01/12 documented as of this encounter
--- OUTSIDE RECORDS SUMMARY | 2025-04-09 17:53 | XMS_ITS | Encounter Summary ---
Author Organization [employer] Address [address], [place] [address] Care Team Providers Care Special Education Paraprofessional Name Role Phone Alexandrea Blackwell MD Primary Care Provider [phone] Encounter Details Date Type Department Care Team (Late st Contact Info) Description 01/20/2013 Consent for Procedure/Treatme nt [facility] Department INFORMED CONSENT RECORD Social History [...] as of this encounter Progress Notes * [facility], PROVIDER - 01/20/2013 12:00 AM CDT documented in this encounter Plan of Treatment Not on file documented as of this encounter Visit Diagnoses Not on filedocumented in this encounter Additional Health Concerns Infection Onset Date Last Indicated Resolved Time R/O COVID19 06/03/2021 06/03/2021 06/04/2021 2:15 PM PRINTING PRESS MACHINE OPERATOR documented as of this encounter Care Teams Special Education Paraprofessional Relationship Specialty [place] [address] [place] [address] PCP - General Family Practice 07/01/12 documented as of this encounter
--- OUTSIDE RECORDS SUMMARY | 2025-04-09 17:53 | XMS_ITS | Encounter Summary ---
Author Organization [place] Address [facility] [place] [address] Care Team Providers Care Ammonia Box Operator Name Role Phone Alexandrea Blackwell MD Primary Care Provider [phone] Deidre Mcpherson APRN CREDIT COORDINATOR Unavaila ble Deidre Mcpherson APRN CREDIT COORDINATOR Unavaila ble Mars Canela MD Unavailable [phone] Rosina Murphy MD Unavailable [phone] Rosina Murphy MD Unavailable [phone] Nica Hua Unavailable [phone] Lis Sharp MD Unavailable [phone] Lis Sharp MD Unavailable [phone] Mars Canela MD Unavailable [phone] iLs Sharp MD Unavailable [phone] Alisa Sheffield APRN CREDIT COORDINATOR Unavailable [phone] Antolin Chavez MD Unavailable [phone] Encounter Details Date Type Department Care Team (Late st Contact Info) Description 06/10/2022 [facility] Neurology Clinic [address] [phone] Liberty Bennett RN Social History Tobacco Use Types Packs/Day Years Used Date Smoking Tobacco: Never Smokeless Tobacco: Never Alcohol Use Standard Drinks/Week Comments Yes 0 (1 standard drink = 0.6 oz pur e alcohol) 1/week PHQ-2 Answer Date Recorded PHQ-2 Score 0 08/07/2021 Comments No Sex and Gender Information Value Date Recorded Sex Assigned at Female 03/04/2022 6:27 PM CDT Legal Sex Female 3:15 AM MANAGER SHELL Gender Identity Female 03/04/2022 6:27 PM CDT Sexual Orientation Bisexual 03/04/2022 6: 27 PM CDT COVID-19 Exposure Response Date Recorded In the last 10 days, have yo u been in contact with someone who was confirmed or suspected to have Coronavirus/COVID-19? No / Unsure 06/11/2022 7:34 AM MANAGER SHELL documented as of this encounter Plan of Treatment Upcoming Encounters Date Type Department Care Team (Late st Contact Info) Description 04/17/2025 1:10 PM CDT Office Visit [facility] Physical Medicine and Rehabilitation [address] [phone] Antolin Chavez MD [address] [place] [address] [id number] 05/29/2025 1:30 PM MANAGER SHELL Office Visit [facility] Physical Medicine and Rehabilitation Clinic [address] [phone] Antolin Chavez MD [address] [place] [address] 183745 07/10/2025 3:30 PM MANAGER SHELL Office Visit [facility] Physical Medicine and Rehabilitation Clinic [address] [phone] Antolin Chavez MD [address] [place] [address] 337025 documented as of this encounter Visit Diagnoses Not on filedocumented in this encounter Care Teams Ammonia Box Operator Relationship Specialty Start Date End Date Alexandrea Blackwell MD PCP - General 05/26/12 Deidre Mcpherson APRN CREDIT COORDINATOR [address] [place] [address] Nurse Practitioner Neurology 07/27/20 Deidre Mcpherson APRN CREDIT COORDINATOR [address] [place] [address] [phone] Assigned Neuroscience Provider 12/09/20 12/18/24 Mars Canela MD [address] [place] [address] 975895 Assigned Surgical Provider 10/13/21 09/05/22 Rosina Murphy MD [address] [place] [address] 759875 Physical Medicine and Rehabilitation 11/19/21 Rosina Murphy MD [address] [place] [address] 295595 Physical Medicine and Rehabilitation 11/19/21 Nica Hua AuD [address] [place] [address] 235195 It Intern Audiology 05/21/22 Lis Sharp MD [address] [place] [address] Otolaryngology 05/21/22 Lis Sharp MD [address] [place] [address] 47709 Assigned Surgical Provider 09/06/22 10/24/22 Mars Canela MD [address] [place] [address] 61446 Assigned Surgical Provider 10/25/22 10/31/22 Lis Sharp MD [address] [place] [address] 35994 Assigned Surgical Provider 11/01/22 Alisa Sheffield APRN CREDIT COORDINATOR [address] [place] [address] 52193 Nurse Practitioner Neurology 02/04/24 Antolin Chavez MD [address] [place] [address] 22854 Assigned Neuroscience Provider 12/19/24 documented as of this encounter
--- OUTSIDE RECORDS SUMMARY | 2025-04-09 17:53 | XMS_ITS | Encounter Summary ---
Author Organization [place] Address [address] [facility] [place] [address] Care Team Providers Care Group Work Program Aide Name Role Phone Alexandrea Blackwell MD Primary Care Provider [phone] Deidre Mcpherson APRN LEATHER ROLLER Unavaila ble Rosina Murphy MD Unavailable [phone] Rosina Murphy MD Unavailable [phone] Nica Hua AuD Unavailable [phone] Lis Sharp MD Unavailable [phone] Lis Sharp MD Unavailable [phone] Alisa Sheffield APRN LEATHER ROLLER Unavailable [phone] Antolin Chavez MD Unavailable [phone] Encounter Details Date Type Department Care Team (Latest Contact Info) Description 03/01/2025 Travel Social History Tobacco Use Types Packs/Day Years [...] PM CDT Legal Sex Female 3:15 AM MORTGAGE ACCOUNTING CLERK Gender Identity Female 03/04/2022 6:27 PM CDT Sexual Orientation Bisexual 03/04/2022 6: 27 PM CDT documented as of this encounter Plan of Treatment Upcoming Encounters Date Type Department Care Team (Late st Contact Info) Description 04/17/2025 1:10 PM CDT Office Visit [facility] Physical Medicine and Rehabilitation [address] [phone] Antolin Chavez MD [address] [place] [address] 447185 05/29/2025 1:30 PM MORTGAGE ACCOUNTING CLERK Office Visit [facility] Physical Medicine and Rehabilitation [address] [phone] Antolin Chavez MD [address] [place] [address] 448305 07/10/2025 3:30 PM MORTGAGE ACCOUNTING CLERK Office Visit [facility] Physical Medicine and Rehabilitation [address] [phone] Antolin Chavez MD [address] [place] [address] 256025 documented as of this encounter Visit Diagnoses Not on filedocumented in this encounter Care Teams Group Work Program Aide Relationship Specialty Start Date End Date Alexandrea Blackwell MD PCP - General 05/26/12 Deidre Mcpherson APRN LEATHER ROLLER [address] [place] [address] [address] Nurse Practitioner Neurology 07/27/20 Rosina Murphy MD [address] [place] [address] Physical Medicine and Rehabilitation 11/19/21 Rosina Murphy MD [address] [place] [address] 19116 Physical Medicine and Rehabilitation 11/19/21 Nica Hua AuD [address] [place] [address] [phone] Landing Man Audiology 05/21/22 Lis Sharp MD [address] [place] [address] 688155 Otolaryngology 05/21/22 Lis Sharp MD [address] [place] [address] 952915 Assigned Surgical Provider 11/01/22 Alisa Sheffield APRN LEATHER ROLLER [address] [place] [address] 240495 Nurse Practitioner Neurology 02/04/24 Antolin Chavez MD [address] [place] [address] [address] [place], [place] 691715 Assigned Neuroscience Provider 12/19/24 documented as of this encounter
--- OUTSIDE RECORDS SUMMARY | 2025-04-09 17:53 | XMS_ITS | Encounter Summary ---
Author Organization [employer] Address [address] [place] [address] Care Team Providers Care Welder Apprentice Arc Name Role Phone Alexandrea Blackwell MD Primary Care Provider [phone] Encounter Details Date Type Department Care Team (Late st Contact Info) Description 05/30/2014 [facility] 401 [place] [address] Estevan More MD PRIOR AUTH PHARMACY ADMIN Social History Tobacco Use Types Packs/Day Years [...] R/O COVID19 06/03/2021 06/03/2021 06/04/2021 2:15 PM COMMISSIONED FIRE OFFICER documented as of this encounter Care Teams Welder Apprentice Arc Relationship Specialty [place] [address] [place] [address] PCP - General Family Practice 07/01/12 documented as of this encounter
--- OUTSIDE RECORDS SUMMARY | 2025-04-09 17:53 | XMS_ITS | Encounter Summary ---
Author Organization [place] Address [address] [facility] [place] [address] Care Team Providers Care Senior Oracle Adf Developer Name Role Phone Alexandrea Blackwell MD Primary Care Provider [phone] Rupa Roa MD Unavailable [phone] Lis Sharp MD Unavailable Deidre Mcpherson APRN OUTPATIENT ADMITTING CLERK Unavaila ble Tico Mensah MD Unavailable Deidre Mcpherson APRN OUTPATIENT ADMITTING CLERK Unavaila ble Mars Canela MD Unavailable [phone] Rosina Murphy MD Unavailable [phone] Rosina Murphy MD Unavailable [phone] Nica Hua Unavailable [phone] Lis Sharp MD Unavailable [phone] Lis Sharp MD Unavailable [phone] Mars Canela MD Unavailable [phone] Lis Sharp MD Unavailable [phone] Alisa Sheffield APRN, CNP Unavailable [phone] Antolin Chavez MD Unavailable [phone] Encounter Details Date Type Department Care Team (Late st Contact Info) Description 11/04/2020 Records - [facility] Imaging [address] [place] [phone] Scan, Non-Provider Social History Tobacco Use Types Packs/Day Years Used Date Smoking Tobacco: Never Smokeless Tobacco: Never Alcohol Use Standard Drinks/Week Comments Yes 0 (1 standard drink = 0.6 oz pur e alcohol) 1/week PHQ-2 Answer Date Recorded PHQ-2 Score 0 11/05/2020 Comments No Sex and Gender Information Value Date Recorded Sex Assigned at Female 03/04/2022 6:27 PM CDT Legal Sex Female 3:15 AM RETURN TO VENDOR Gender Identity Female 03/04/2022 6:27 PM CDT [facility] [address] [phone] Antolin Chavez MD [address] [place] [address] 05/29/2025 1:30 PM RETURN TO VENDOR Office Visit [facility] Physical Medicine and Rehabilitation [address] [phone] Antolin Chavez MD [address] [place] [address] 07/10/2025 3:30 PM RETURN TO VENDOR Office Visit [facility] Physical Medicine [facility] Rehabilitation Clinic [facility] [address] [facility] 3rd [place] [phone] Antolin Chavez MD [address] [facility] [address] [place], [place] [phone] documented as of this encounter Visit Diagnoses Not on filedocumented in this encounter Care Teams Senior Oracle Adf Developer Relationship Specialty Start Date End Date Alexandrea Blackwell MD PCP - General 05/26/12 Rupa Roa MD [address] [place] [address] [address] [place] [address] Assigned Neuroscience Provider 05/13/20 11/10/20 Lis Sharp MD [address] [place] [address] [address] [place], [place] 524045 Assigned Surgical Provider 04/20/20 10/12/21 Deidre Mcpherson APRN OUTPATIENT ADMITTING CLERK [address] [place] [address] [id number] Nurse Practitioner Neurology 07/27/20 Tico Mensah MD [address] [place] [address] 924335 Assigned Neuroscience Provider 11/11/20 12/08/20 Deidre Mcpherson APRN OUTPATIENT ADMITTING CLERK [address] [place] [address] 697505 Assigned Neuroscience Provider 12/09/20 12/18/24 Mars Canela MD [address] [place] [address]781 Assigned Surgical Provider 10/13/21 09/05/22 Rosina Murphy MD [address] [place] [address]52 Physical Medicine and Rehabilitation 11/19/21 Rosina Murphy MD [address] [place] [address] 12021 Physical Medicine and Rehabilitation 11/19/21 Nica Hua AuD [address] [place] [address] 37965 Home Appliance Washing Machine Mechanic Audiology 05/21/22 Lis Sharp MD [address] [place] [address]19 Otolaryngology 05/21/22 Lsi Sharp MD [address] [place] [address] 88868 Assigned Surgical Provider 09/06/22 10/24/22 Mars Canela MD [address] [place] [address] 14460 Assigned Surgical Provider 10/25/22 10/31/22 Lis Sharp MD [address] [place] [address]209 Assigned Surgical Provider 11/01/22 Alisa Sheffield APRN OUTPATIENT ADMITTING CLERK [address] [place] [address] 81461 Nurse Practitioner Neurology 02/04/24 Antolin Chavez MD [address] [place] [address] [address] [place], [place] 585[address] Assigned Neuroscience Provider 12/19/24 documented as of this encounter
--- OUTSIDE RECORDS SUMMARY | 2025-04-09 17:53 | XMS_ITS | Encounter Summary ---
Author Organization [place] Address [address] [facility] [place] [address] Care Team Providers Care Appetizer Packer Name Role Phone Alexandrea Blackwell MD Primary Care Provider [phone] Deidre Mcpherson APRN LEAN MANUFACTURING LEADER Unavaila ble Deidre Mcpherson PAPER COATER LEAN MANUFACTURING LEADER Unavaila ble Rosina Murphy MD Unavailable [phone] Rosina Murphy MD Unavailable [phone] Nica Hua AuD Unavailable [phone] Lis Sharp MD Unavailable [phone] Lis Sharp MD Unavailable [phone] Alisa Sheffield APRN LEAN MANUFACTURING LEADER Unavailable [phone] Antolin Cahvez MD Unavailable [phone] Encounter Details Date Type Department Care Team (Late st Contact Info) Description 07/24/2023 [facility] [address] [place] [address] Connie Arias RN Social History Tobacco Use Types Packs/Day Years Used Date Smoking Tobacco: Never Smokeless Tobacco: Never Alcohol Use Standard Drinks/Week Comments Yes 0 (1 standard drink = 0.6 oz pur e alcohol) 1/week PHQ-2 Answer Date Recorded PHQ-2 Score 0 08/26/2022 Adolescent Education Answer Date Record ed Getting School Help Needed Not on file 03/21 Comments No Sex and Gender Information Value Date Recorded Sex Assigned at Female 03/04/2022 6:27 PM CDT Legal Sex Female 3:15 AM PACKAGER Gender Identity Female 03/04/2022 6:27 PM CDT Sexual Orientation Bisexual 03/04/2022 6: 27 PM CDT documented as of this encounter Plan of Treatment Upcoming Encounters Date Type Department Care Team (Late st Contact Info) Description 04/17/2025 1:10 PM CDT Office Visit [facility] Physical Medicine and Rehabilitation [address] [phone] Antolin Chavez MD [address] [place] [address] 120265 05/29/2025 1:30 PM PACKAGER Office Visit [facility] [address] [phone] Antolin Chavez MD [address] [place] [address] 07/10/2025 3:30 PM PACKAGER Office Visit [facility] [address] [phone] Antolin Chavez MD [address] [place] [address] 188455 documented as of this encounter Visit Diagnoses Not on filedocumented in this encounter Care Teams Appetizer Packer Relationship Specialty Start Date End Date Alexandrea Blackwell MD PCP - General 05/26/12 Deidre Mcpherson PAPER COATER LEAN MANUFACTURING LEADER [address] [place], [place] [address] [address] Nurse Practitioner Neurology 07/27/20 Deidre Mcpherson APRN LEAN MANUFACTURING LEADER [address] [place] [address] Assigned Neuroscience Provider 12/09/20 12/18/24 Rosina Murphy MD [address] [place] [address] [id number] Physical Medicine and Rehabilitation 11/19/21 Rosina Murphy MD [address] [place] [address] 898135 Physical Medicine and Rehabilitation 11/19/21 Nica Hua AuD [address] [place] [address] [phone] Account Manager Employee Benefits Audiology 05/21/22 Lis Sharp MD [address] [place] [address] 456875 Otolaryngology 05/21/22 Lis Sharp MD [address] [place] [address] Assigned Surgical Provider 11/01/22 Alisa Sheffield APRN LEAN MANUFACTURING LEADER [address] [place] [address]12 Nurse Practitioner Neurology 02/04/24 Antolin Chavez MD [address] [facility] [address] [place] [address] Assigned Neuroscience Provider 12/19/24 documented as of this encounter
--- OUTSIDE RECORDS SUMMARY | 2025-04-09 17:53 | XMS_ITS | Clinical Summary ---
Author Organization [place] Address [address] [facility] [place] [address] Care Team Providers Care Rf Technician Name Role Phone Alexandrea Blackwell MD Primary Care Provider [phone] Deidre Mcpherson APRN SLEEVE SEPARATOR Unavaila ble Rosina Murphy MD Unavailable [phone] Rosina Murphy MD Unavailable [phone] Nica Hua AuD Unavailable Lis Sharp MD Unavailable Lis Sharp MD Unavailable Alisa Sheffield APRN SLEEVE SEPARATOR Unavailable Antolin Chavez MD Unavailable [phone] Allergies Active Allergy Reactions Criticality Noted Date Comments Shellfish-Derived Products Hives High 8 Sulfa Antibiotics Rash Low 06/24/2012 Medications TRAZODONE HCL PO Take 100 mg by mouth At Bedtime Active PARoxetine HCl (PAXIL PO) Take 40 mg by mouth At Bedtime Active cetirizine (ZYRTEC) 10 MG tablet Take 10 mg by mouth daily. 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 Take 1 tablet (600 mg) by mouth every 6 hours as needed for moderate pain 30 tablet 1 10/10/19 17 Active docusate sodium (COLACE) 100 MG tablet Take 100 mg by mouth daily 30 tablet 1 03/10/20 18 Active diltiazem 2% in lipovan cream 2% GEL Apply topically 2 times daily Active Botulinum Toxin Type A (BOTOX) 200 units injectionIndications: Intractable chronic migraine without aura and without status migrainosus Inject 155 Units into the muscle every 3 months 155 Units 4 06/18/20 20 Active budesonide (PULMICORT) 0.5 MG/2ML neb solutionIndications:M oderate persistent reactive airway disease without complication Empty contents of ampule into 240mL of saline solution and rinse both nasal cavities as instructed twice daily. 120 mL 1 08/09/19 22 Active ondansetron (ZOFRAN ODT) 4 MG ODT tabIndications:Migrai ne without aura and without status migrainosus, not intractable Take 1 tablet (4 mg) by mouth every 6 hours as needed for nausea 20 tablet 3 11/19/19 24 Active rimegepant (NURTEC) 75 MG ODT tabletIndications:Chr onic migraine without aura without status migrainosus, not intractable Place 1 tablet (75 mg) on or under the tongue every 48 hours. 16 tablet 11 08/19/19 25 Active cyclobenzaprine (FLEXERIL) 5 MG tabletIndications:Cer radha-occipital neuralgia,Muscle spasm Take 1-2 tablets (5-10 mg) by mouth at bedtime. 2-3 hours before bed. 60 tablet 2 03/01/20 25 Active Hospital, Clinic, or Other Facility Administered Medication Ordered Dose Route Frequency Start Date End Date Status Botulinum Toxin Type A (BOTOX) 200 units injection 155 UnitsIndications:Ch ronic migraine without aura without status migrainosus, not intractable 155 Units IM SEE ADMIN INSTRUCTIONS 06/03/2023 Active botulinum toxin type A (BOTOX) 100 units injection 300 UnitsIndications:Ce rvical dystonia,Chronic migraine without aura without status migrainosus, not intractable,Muscle spasm 300 Units IM EVERY 3 MONTHS 05/04/2024 07/28/2025 Active Active Problems Problem Noted Date Diagnosed Date Cervicalgia 02/17/2024 Other spondylosis, cervical region 11/05/2023 Pain of cervical facet joint 11/05/2023 Myalgia of pelvic floor 08/30/2020 Resolved Problems Problem Noted Date Diagnosed Date Resolved Date Constipation 05/09/2022 06/18/2022 Pelvic floor dysfunction 05/09/2022 Bilateral arm pain 01/31/2021 Neck pain 01/31/2021 07/10/2021 Muscle weakness (generalized) 08/30/2020 10/17/2020 Dyssynergic defecation 08/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/17 Encounters Date Type Department Care Team Description 03/01/2025 1:50 PM CDT Office Visit [facility] Physical Medicine and Rehabilitation Clinic [address] [phone] Antolin Chavez MD Cervico-occipital neuralgia (Primary Dx); Muscle spasm 03/01/2025 Travel 01/18/2025 5:45 PM CDT Ancillary Procedure [facility] [address] [place] [address] Antolin Chavez MD Cervical dystonia 01/18/2025 4:10 PM CDT Office Visit [facility] Physical Medicine and Rehabilitation Clinic [address] [phone] Antolin Chavez MD Chronic migraine without aura without status migrainosus, not intractable (Primary Dx); Cervico-occipital neuralgia; Cervical dystonia; Muscle spasm 01/18/2025 Travel from Last 3 Months Social History Tobacco Use Types Packs/Day Years Used Date Smoking Tobacco: Never Smokeless Tobacco: Never Tobacco Cessation:Counseling Given: No Alcohol Use Standard Drinks/Week Comments Yes 0 [...] PM CDT Legal Sex Female 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 Gender Identity Female 03/04/2022 6:27 PM CDT Sexual Orientation Bisexual 03/04/2022 6: 27 PM CDT Last Filed Vital Signs Vital Sign Reading Time Taken Comments Blood Pressure 109/74 04/27/2024 11:06 AM CDT Pulse 64 04/27/2024 11:06 AM CDT Temperature 36.1 C (97 F) 03/07/2024 12:18 PM CDT Respiratory Rate 18 03/07/2024 12:18 PM CDT Oxygen Saturation 97% 04/27/2024 11:06 AM CDT Inhaled Oxygen Concentration - - Weight 61.7 kg (136 lb) 04/27/2024 11:06 AM CDT Height 167.6 cm (5' 6) 02/17/2024 7:39 AM CDT Body Mass Index 21.95 02/17/2024 7:39 AM CDT Plan of Treatment Upcoming Encounters Date Type Department Care Team (Late st Contact Info) Description 04/17/2025 1:10 PM CDT Office Visit [facility] Physical Medicine and Rehabilitation Clinic [address] [phone] Antolin Chavez MD [address] [place] [address] 099565 05/29/2025 1:30 PM BAT LATHE OPERATOR Office Visit [facility] Physical Medicine and Rehabilitation [address] [phone] Antolin Chavez MD [address] [place] [address] 917395 07/10/2025 3:30 PM BAT LATHE OPERATOR Office Visit [facility] Physical Medicine and Rehabilitation Clinic [place] [address] [facility] [address] 3rd [place] [address] Antolin Chavez MD [address] [facility] [address] [place], [place] [address] Health Maintenance Due Date Last Done Comments ADVANCE CARE PLANNING 1973 ANNUAL REVIEW OF HM ORDERS 1973 CT COLONOGRAPHY 1973 FIT 1973 FLEX SIG 1973 sDNA (Cologuard) 1973 HEPATITIS B VACCINE (3 of 3 - 19+ 3-dose series) 05/27/2012 12/29/2011, 11/25/2011 LIPID 2013 YEARLY PREVENTIVE VISIT 05/16/2014 05/16/2013, 02/08 PAP 08/08/2018 08/08/2015 PNEUMOCOCCAL VACCINE 50+ YEARS (1 of 1 - PCV) 2023 ZOSTER VACCINE (1 of 2) 2023 DIABETES SCREENING 09/05/2024 09/05/2021, 1 , 07/15/2017, Additional history exists COVID-19 VACCINE (3 - 2024- season) 2025 09/05/2020, 08/15/2020 INFLUENZA VACCINE (#1) 2025 , 04/02/2021, 04/05/2019, Additional history exists DTAP/TDAP/TD VACCINE (4 - Td or Tdap) 04/30/2025 04/30/2015, 11/13/2004, 11/13/2004 MAMMO SCREENING 06/23/2026 06/23/2024, 05/30, 11/12/2022, Additional history exists COLONOSCOPY 03/15/2029 03/15/2019 COLORECTAL CANCER SCREENING 03/15/2029 HIV SCREENING Completed 12/11/2016 HEPATITIS C SCREENING Completed 12/23/2022 PHQ-2 (once per calendar year) Completed 08/03/2024, 02/17/2024, 08/04/2023, Additional history exists HPV VACCINE (No Doses Required) Completed MENINGITIS VACCINE Aged Out No longer eligible based on patient's age to complete this topic Procedures Procedure Name Priority Date/Time Associated Diagnosis Comments UT INJECTION ANES AGENT AND/OR STERIOD, OTHER PERIPH NERVE/BRANCH Routine 03/01/2025 2:27 PM CDT Cervico-occipital neuralgia Muscle spasm UT INJECTION ANES AGENT AND/OR STERIOD, GREATER OCCIPITAL NERVE Routine 03/01/2025 2:27 PM CDT Cervico-occipital neuralgia Muscle spasm UT CHEMODENERVATE FACIAL,TRIGERM,NERV MIGRAINE Routine 01/18/2025 5:42 PM CDT Cervico-occipital neuralgia Cervical dystonia Muscle spasm Chronic migraine without aura without status migrainosus, not intractable COMPREHENSIVE METABOLIC PANEL Routine 09/05/2021 4:13 PM BAT LATHE OPERATOR Myofascial pain Trigger point MAMMOGRAM - HIM SCAN Routine 07/26/2020 from Last 3 Months or Most Recently Relevant to Health Maintenance Results * (ABNORMAL) Comprehensive metabolic panel (09/05/2021 4:13 PM BAT LATHE OPERATOR) Sodium 141 133 - 144 mmol/L 09/05/2021 4:37 PM [facility] Potassium (POCT) 3.3(L) 3.4 - 5.3 mmol/L 09/05/2021 4:37 PM [facility] Chloride (POCT) 106 94 - 109 mmol/L 09/05/2021 4:37 PM [facility] Carbon Dioxide (CO2) (POCT) 28 20 - 32 mmol/L 09/05/2021 4:37 PM BAT LATHE OPERATOR [facility] Anion Gap (POCT) 7 3 - 14 mmol/L 09/05/2021 4:37 PM [facility] Urea Nitrogen (POCT) 17 7 - 30 mg/dL 09/05/2021 4:37 PM [facility] Creatinine 0.78 0.52 - 1.04 mg/dL 09/05/2021 4:37 PM [facility] Calcium 8.9 8.5 - 10.1 mg/dL 09/05/2021 4:37 PM [facility] Glucose (POCT) 114(H) 70 - 99 mg/dL 09/05/2021 4:37 PM BAT LATHE OPERATOR [facility] Alkaline Phosphatase 71 40 - 150 U/L 09/05/2021 4:37 PM BAT LATHE OPERATOR [facility] AST 14 0 - 45 U/L 09/05/2021 4:37 PM BAT LATHE OPERATOR [facility] ALT 23 0 - 50 U/L 09/05/2021 4:37 PM [facility] Protein Total 8.3 6.8 - 8.8 g/dL 09/05/2021 4:37 PM BAT LATHE OPERATOR [facility] Albumin (POCT) 4.4 3.4 - 5.0 g/dL 09/05/2021 4:37 PM BAT LATHE OPERATOR [facility] Bilirubin Total 0.3 0.2 - 1.3 mg/dL 09/05/2021 4:37 PM [facility] GFR Estimate >90 >60 mL/min/1.7 3m2 09/05/2021 4:37 PM [facility] Comment:Effective May 302020 eGFRcr in adults is calculated using the 2020 CKD-EPI creatinine equation which includes age and gender (Yehuda et al., NEJ, DOI: 10.1056/YKFUwn9866192) Blood BLOOD SPECIMEN / Unknown Venipuncture / Unknown 09/05/2021 4:13 PM BAT LATHE OPERATOR 09/05/2021 4:13 PM BAT LATHE OPERATOR us Rosina Murphy MD LAB - BLOOD ORDERABLES Final Re sult [facility] [address] 1st [place] [address] * Mammogram - HIM Scan (07/26/2020) Anatomical Region Laterality Modality Other Narrative 07/26/2020 Result Impression : ACR BI-RADS Category 1: Negative RECOMMENDATION: Follow Up Imaging in 12 months - Bilateral The results and recommendations of this examination will be communicated to the patient. Result Narrative MM MAMMOGRAM SCREENING BILAT W 3D JG W CAD performed on 07/25/20 Compared to: 07/21/2019 MM Mammogram Screening Bilat W 3D Jg W CAD, 03/24/2018 MM Mammogram Screening Bilat W 3D Jg W CAD, and 11/21/2016 MM Mammogram Screening Bilat W Jg W CAD FINDINGS: Bilateral screening mammogram was performed with the assistance of Computer-Aided Detection and breast tomosynthesis. The breasts are heterogeneously dense, which may obscure small masses. There is no radiographic evidence of malignancy. us Provider Outside IMG MAMMOGRAPHY ORDERABLES Garima l Result from Last 3 Months or Most Recently Relevant to Health Maintenance Insurance [facility] Care Teams Rf Technician Relationship Specialty Start Date End Date Alexandrea Blackwell MD PCP - General 05/26/12 Deidre Mcpherson APRN SLEEVE SEPARATOR [address] [place] [address] [id number] [place], [place] [phone] Nurse Practitioner Neurology 07/27/20 Rosina Murphy MD [address] [place] [address] [phone] Physical Medicine and Rehabilitation 11/19/21 Rosina Murphy MD [address] [place] [address] [phone] Physical Medicine and Rehabilitation 11/19/21 Nica Hua AuD [address] [place] [address] [phone] Chief Executive Or Managing Director Audiology 05/21/22 Lis Sharp MD [address] [place] [address] [address] [place], [place] [phone] Otolaryngology 05/21/22 Lis Sharp MD [address] [place] [address] [address] [place], [place] 774735 Assigned Surgical Provider 11/01/22 Alisa Sheffield APRN SLEEVE SEPARATOR [address] [place] [address] [phone] Nurse Practitioner Neurology 02/04/24 Antolin Chavez MD [address] [place] [address] [address] [place], [place] 736375 Assigned Neuroscience Provider 12/19/24
--- OUTSIDE RECORDS SUMMARY | 2025-04-09 17:53 | XMS_ITS | Encounter Summary ---
Author Organization [facility] Address [address] [facility] [place] [address] Care Team Providers Care Polisher Balance Screwhead Name Role Phone Alexandrea Blackwell MD Primary Care Provider [phone] Rupa Roa MD Unavailable [phone] Lis Sharp MD Unavailable [phone] Deidre Mcpherson APRN MAINTENANCE APPRENTICE Unavaila ble Tico Mensah MD Unavailable Deidre Mcpherson APRN MAINTENANCE APPRENTICE Unavaila ble Mars Canela MD Unavailable [phone] Rosina Murphy MD Unavailable [phone] Rosina Murphy MD Unavailable [phone] Nica Hua Unavailable [phone] Lis Sharp MD Unavailable [phone] Lis Sharp MD Unavailable [phone] Mars Canela MD Unavailable [phone] Lis Sharp MD Unavailable [phone] Alisa Sheffield APRN MAINTENANCE APPRENTICE Unavailable Antolin Chavez MD Unavailable [phone] Encounter Details Date Type Department Care Team (Late st Contact Info) Description 06/25/2020 MyC Medical Advice [facility] [address] [phone] Noemi Harley, GOOD Social History Tobacco Use Types Packs/Day Years Used Date Smoking Tobacco: Never Smokeless Tobacco: Never Alcohol Use Standard Drinks/Week Comments Yes 0 (1 standard drink = 0.6 oz pur e alcohol) 1/week PHQ-2 Answer Date Recorded PHQ-2 Score 0 04/10/2020 Comments No Sex and Gender Information Value Date Recorded Sex Assigned at Female 03/04/2022 6:27 PM CDT Legal Sex Female 3:15 AM MAINTENANCE SUPERINTENDENT Gender Identity Female 03/04/2022 6:27 PM CDT Sexual Orientation Bisexual 03/04/2022 6: 27 PM CDT documented as of this encounter Plan of Treatment Upcoming Encounters Date Type Department Care Team (Late st Contact Info) Description 04/17/2025 1:10 PM CDT Office Visit [facility] Physical Medicine and Rehabilitation [address] [phone] Antolin Chavez MD [address] [place] [address] [phone] 05/29/2025 1:30 PM MAINTENANCE SUPERINTENDENT Office Visit [facility] [address] [phone] Antolin Chavez MD [address] [place] [address] [phone] 07/10/2025 3:30 PM MAINTENANCE SUPERINTENDENT Office Visit [facility] [address] [phone] Antolin Chavez MD [address] [place] [address] [phone] documented as of this encounter Visit Diagnoses Not on filedocumented in this encounter Care Teams Polisher Balance Screwhead Relationship Specialty Start Date End Date Alexandrea Blackwell MD PCP - General 05/26/12 Rupa Roa MD [address] [place] [address] [address] [place] [address] Assigned Neuroscience Provider 05/13/20 11/10/20 Lis Sharp MD [address] [place] [address] [address] [place] [address] Assigned Surgical Provider 04/20/20 10/12/21 Deidre Mcpherson APRN MAINTENANCE APPRENTICE [address] [place] [address] Nurse Practitioner Neurology 07/27/20 Tico Mensah MD [address] [place] [address] [id number] Assigned Neuroscience Provider 11/11/20 12/08/20 Deidre Mcpherson APRN MAINTENANCE APPRENTICE [address] [place] [address] Assigned Neuroscience Provider 12/09/20 12/18/24 Mars Canela MD [address] [place] [address] Assigned Surgical Provider 10/13/21 09/05/22 Rosina Murphy MD [address] [place] [address] Physical Medicine and Rehabilitation 11/19/21 Rosina Murphy MD [address] [place] [address] Physical Medicine and Rehabilitation 11/19/21 Nica Hua AuD [address] [place] [phone] [facility] 05/21/22 Lis Sharp MD [address] [place] [address] Otolaryngology 05/21/22 Lis Sharp MD [address] [place] [address] Assigned Surgical Provider 09/06/22 10/24/22 Mars Canela MD [address] [place] [phone] Assigned Surgical Provider 10/25/22 10/31/22 Lis Sharp MD [address] [place] [address] Assigned Surgical Provider 11/01/22 Alisa Sheffield APRN CNP [address] [place] [address] Nurse Practitioner Neurology 02/04/24 Antolin Chavez MD [address] [place] [address] [address] [place] [address] Assigned Neuroscience Provider 12/19/24 documented as of this encounter
--- OUTSIDE RECORDS SUMMARY | 2025-04-09 17:53 | XMS_ITS | Encounter Summary ---
Author Organization [facility] Address [address] [place] [address] Care Team Providers Care Track Repair Supervisor Name Role Phone Alexandrea Blackwell MD Primary Care Provider [phone] Encounter Details Date Type Department Care Team (Late st Contact Info) Description 08/17/2017 Correspondence [facility] Obstetrics and Gynecology [address] [place] [address] [phone] Valeria Pastrana MD [address] [place] [phone] FMLA Social History Tobacco Use Types Packs/Day Years [...] R/O COVID19 06/03/2021 06/03/2021 06/04/2021 2:15 PM INSPECTOR AND HAND PACKAGER documented as of this encounter Care Teams Track Repair Supervisor Relationship Specialty [place] [address] [place] [address] PCP - General Family Practice 07/01/12 documented as of this encounter
[2025-04-09 18:19] VITALS: BP 114/80; PULSE 76; RESP 20; TEMP 36.3; O2SAT 100; BMI 23.4
--- NOTE | 2025-04-09 18:20 | ED.GENADULT ---
HPI - General Adult General Date Seen: 04/09/25 Chief complaint: Epistaxis/Nosebleed Stated complaint: nose Bleed for past hour Time Seen by Provider: 04/09/25 18:19 History of Present Illness HPI narrative: 49-year-old female presenting to the ER today for epistaxis. She has a history of multiple episodes of epistaxis over the years but has not had any serious epistaxis or needed to see an ENT doctor in more than 6 years. It sounds like she has had epistaxis due to anterior bleeds, mostly. She has had a septoplasty once in the past. She does not have any known polyps. No history of coagulopathy or anticoagulated use. No other definite unusual bruising or bleeding. She did mention, recently, to her PCP that she had some bruises on her arms and legs but no other concerning bleeding and did not prompt a coagulopathy workup. She has been healthy and well lately other than a little bit of nasal congestion since last week, which she attributes to the weather change. She does use Zyrtec every day and had use a little bit of allergy medicine last week. No other nasal congestion. No nasal trauma. She bent down to pet her catheterization this afternoon just prior to arrival and had onset of fairly gushing dark red blood from her nose. Initially was actually coming out of both nostrils but subsequently seemed to be more on the right than on the left. She has a little bit of pressure in her face. She was also feeling some bleeding going down her posterior oropharynx. No dizziness or lightheadedness. Related Data Home Medications ?Medication ?Instructions ?Recorded ?Confirmed cyclobenzaprine 5 mg tablet 5 mg PO BID 04/09/25 04/09/25 estradiol 0.25 mg/0.25 gram (0.1 250 mg topical DAILY 04/09/25 04/09/25 %) transdermal gel packet estradiol 0.5 mg/0.5 gram (0.1 %) 500 mg topical DAILY 04/09/25 04/09/25 transdermal gel packet lidocaine 5 % topical patch 1 patch topical DAILY 04/09/25 04/09/25 paroxetine HCl 10 mg tablet mg PO 04/09/25 trazodone 100 mg tablet 100 mg PO QPM PRN insomnia 04/09/25 04/09/25 Allergies Allergy/AdvReac Type Severity Reaction Status Date / Time Penicillins Allergy Mild Rash Verified 04/09/25 18:23 Sulfa (Sulfonamide Allergy Mild Rash Verified 04/09/25 18:23 Antibiotics) PFSH [facility] Social History Smoking Status: Never smoker How often do you have a drink containing alcohol: never AUDIT-C Alcohol total score: 0 Non-prescribed substance use: denies use Exam Narrative: Exam Narrative: Patient room in ER room 4. She is evaluated sitting up in the ENT chair. She has a nasal clamp in place. She spitting out small amounts of blood from her mouth but no signs of any active bleeding on her pharyngeal exam. Constitutional: Appears well-developed and well-nourished. Active. Non-toxic appearing. HENT: Head: Atraumatic. No signs of injury. Nose: External nose normal. No signs of bruising, deformity, trauma. When we take off her nasal clamp she has a little bit of red bleeding from her right nares but is not bleeding from the left. No nasal discharge. No septal deviation. After application of Afrin vasoconstrictor and lidocaine with epinephrine I am able to get a better view into the patient's nose. No bleeding on the left. She has a site that appears to been recently bleeding on the mucosa of the nasal septum about 1 cm in from the nares on the right side. I do not see any other source of bleeding in the right nostril. I do not see any other bleeding more deep in the nasal cavity. This site of bleeding was cauterized using silver nitrate. Patient was subsequently monitored and did well. No recurrent bleeding. She passed ambulation trial and is feeling well. Mouth/Throat: Mucous membranes are moist. Pharynx is normal. Tonsils symmetric. Uvula midline. Airway patent. No posterior or pharyngeal bleeding. Eyes: Conjunctivae normal and EOM are normal. Pupils are equal, round, and reactive to light. Right eye exhibits no discharge. Left eye exhibits no discharge. No icterus. Neck: Normal range of motion. Neck supple. No adenopathy. No stridor. Cardiovascular: Normal rate and regular rhythm. Skin is pink and warm and dry and well perfused. Brisk capillary refill Pulmonary/Chest: Effort normal. No stridor. No respiratory distress. Musculoskeletal: Normal range of motion. No edema. No tenderness. No deformity. Neurological: Alert. Normal strength. No cranial nerve deficit or sensory deficit. Coordination normal. GCS eye subscore is 4. GCS verbal subscore is 5. GCS motor subscore is 6. Skin: Skin is warm. No rash noted. Const: Vital Signs, click to edit/add: Vital Signs - 24 hr 04/09/25 18:19 Temperature 97.3 F L Pulse Rate [Pulse Oximeter] 76 Respiratory Rate 20 Blood Pressure [Ri ght Upper Arm] 114/80 Pulse Oximetry 100 Oxygen Delivery Me thod Room Air Course Vital Signs Vital signs: Initial Vital Signs Temperature 97.3 F L 04/09/25 18:19 Temperature Source Temporal Artery Scan 04/09/25 18:19 Pulse Rate 76 04/09/25 18:19 Respiratory Rate 20 04/09/25 18:19 Blood Pressure 114/80 04/09/25 18:19 Blood Pressure Mean 91 04/09/25 18:19 Pulse Oximetry 100 04/09/25 18:19 Oxygen Delivery Method Room Air 04/09/25 18:19 Vital Signs Temperature 97.3 F L 04/09/25 18:19 Pulse Rate 76 04/09/25 18:19 Respiratory Rate 20 04/09/25 18:19 Blood Pressure 114/80 04/09/25 18:19 Pulse Oximetry 100 04/09/25 18:19 Oxygen Delivery Method Room Air 04/09/25 18:19 Temperature 97.3 F L 04/09/25 18:19 Pulse Rate 76 04/09/25 18:19 Respiratory Rate 20 04/09/25 18:19 Blood Pressure 114/80 04/09/25 18:19 Pulse Oximetry 100 04/09/25 18:19 Oxygen Delivery Method Room Air 04/09/25 18:19 Medications Administered Medications: Discontinued Medications Generic Name Dose Route Start Last Admin Trade Name Freq PRN Reason Stop Dose Admin Lidocaine HCl 15 ml 04/09/25 18:31 04/09/25 19:37 Lidocaine Viscous 2% 15 Ml Solution SWISH/SPIT 04/09/25 18:32 Not Given ONCE ONE Lidocaine/Epinephrine 10 ml 04/09/25 18:31 04/09/25 19:37 Lidocaine 1%-Epi 1:100,000 INFILTRATI 04/09/25 18:32 10 ml ONCE ONE Administration Silver Nitrate/Potassium Nitrate 1 each 04/09/25 18:31 04/09/25 19:37 Silver Nitrate Applicator 1 Each Stick..Ea. TOPICAL 04/09/25 18:32 1 each ONCE ONE Administration Tranexamic Acid 1,000 mg 04/09/25 18:31 04/09/25 19:38 Tranexamic Acid 100 Mg/Ml Inj TOPICAL 04/09/25 18:32 1,000 mg ONCE ONE Administration Medical Decision Making MDM Narrative Medical decision making narrative: Very pleasant 49-year-old female who has a history of occasional nose bleeds in the past and has had prior cauterizations presenting to the ER today with a episode of fairly brisk nose bleeding that she was not able to control at home by application of direct pressure. Initial description was concerning for a possible posterior bleed but bleeding actually stop with direct pressure here in the ER. We were able to identify an apparent source of bleeding in the anterior nose on the nasal septum just inside the right naris. We were able to apply local anesthesia and then cauterized this with silver nitrate. We observed the patient and she had no recurrent bleeding. Discussed with the patient and that at this point we seem to have good hemostasis from the source of bleeding that is just inside right naris. Concern here is whether not there might be a 2nd or other source of bleeding that was more posterior (which would be more likely to explain her bilateral nose bleed at home). At this point we agree that it is not warranted to place a nasal pack and that the discomfort and risks of that procedure with outweigh the benefit. Patient is well-versed in epistaxis care. She will return to the ER if she has recurrent nosebleed that she is not able to stop with a few minutes of direct pressure at home or if she has other concerns. Discharge Plan Discharge Clinical Impression: Epistaxis Patient Disposition: Home, Self-Care Condition: Stable Instructions: Nosebleed (ED) Additional Instructions: As we discussed, please return to the ER right away if you have more nose bleed that your night able to stop or if you have other symptoms such as high fever, severe headache, facial pain or other uncontrolled bleeding or bruising Please use your [id number] allergy medications. You can also use gentle saline mist in your nose to help keep the nasal mucosa moist it try to help reduce the chance of repeat nose bleeds. Prescriptions: No Action paroxetine HCl 10 mg tablet PO trazodone 100 mg tablet 100 mg PO QPM PRN (Reason: insomnia) lidocaine 5 % adhesive patch,medicated 1 patch topical DAILY cyclobenzaprine 5 mg tablet 5 mg PO BID estradiol 0.5 mg/0.5 gram (0.1 %) gel in packet 500 mg topical DAILY estradiol 0.25 mg/0.25 gram (0.1 %) gel in packet 250 mg topical DAILY Follow Up/Referrals: Catrachito Cox MD [Primary Care Provider, Family Practice] Stand Alone Forms: Same Day Serves Info Instructions
[2025-04-09] MEDS: LIDOCAINE 1%-EPI 1:100,000 10 ML INFILTRATI (19:37)
[2025-04-09] MEDS: SILVER NITRATE APPLICATOR 1 EACH STICK..EA. TOPICAL (19:37)
[2025-04-09] MEDS: TRANEXAMIC ACID 100 MG/ML INJ 1000 MG TOPICAL (19:38)
== END 2025-04-09 19:42 | disposition home or self-care (01) ==
PROVIDERS: Emergency Provider Emergency Medicine; PCP Family Medicine
DX: R04.0 Epistaxis (principal)
CPT/HCPCS: 30901; 99282; A9270